=== PATIENT | male | born 1985 | race Caucasian/White ===

== ENCOUNTER 2019-01-20 10:53 | Emergency (ER) | payer SELFPAY ==
[2019-01-20] MEDS ORDERED: ONDANSETRON HCL INJ/PF 4 MG/2 ML SDV IV ONE (11:35)
--- NOTE | 2019-01-20 11:35 | ER Document Report ---
ED Medical Screen (RME) - General Chief Complaint: Passed Out Prior to Arrival Stated Complaint: FEVER/CHILLS Time Seen by Provider: 01/20/19 11:28 Mode of Arrival: Ambulatory Information source: Patient, [facility] Records Notes: 33-year-old male with hypertension presents with complaint of nausea, vomiting, headache, chills, sweats and diarrhea. Patient reports that 3 weeks prior to arrival he underwent an operation at [facility] for an abscess that was in his inguinal area. He states he was admitted for approximately 5 days. I have greeted and performed a rapid initial assessment of this patient. A comprehensive ED assessment and evaluation of the patient, analysis of test results and completion of medical decision making process we will be contacted by additional ED providers. PHYSICAL EXAMINATION: Vital signs reviewed GENERAL: Appears to be uncomfortable LUNGS: No respiratory distress Musculoskeletal: Normal range of motion NEUROLOGICAL: Normal speech, normal gait. PSYCH: Normal mood, normal affect. TRAVEL OUTSIDE OF THE U.S. IN LAST 30 DAYS: No - HPI Onset: Other Onset/Duration: Persistent Quality of pain: Achy Severity: Moderate Associated Symptoms: Chills, Fever, Nausea, Sweating, Vomiting Exacerbated by: Denies Relieved by: Denies Similar symptoms previously: No Recently seen / treated by doctor: Yes - Related Data Smoking: Cigarettes Frequency of alcohol use: Occasional Drug Abuse: Marijuana Allergies/Adverse Reactions: No Known Allergies Allergy (Unverified 01/20/19 10:54) Physical Exam - Vital signs Vitals: Temp Pulse Resp BP Pulse Ox 98.5 F 84 16 164/117 H 100 01/20/19 10:59 01/20/19 10:59 01/20/19 10:59 01/20/19 10:59 01/20/19 10:59 Course - Vital Signs Vital signs: Temp Pulse Resp BP Pulse Ox 98.5 F 84 16 164/117 H 100 01/20/19 10:59 01/20/19 10:59 01/20/19 10:59 01/20/19 10:59 01/20/19 10:59
[2019-01-20 12:29] LABS: ABSOLUTE EOSINOPHILS # (AUTO) 0.1 10^3/uL (0.0-0.6); ABSOLUTE LYMPHOCYTES (AUTO) 1.7 10^3/uL (0.5-4.7); ABSOLUTE MONOCYTES (AUTO) 0.8 10^3/uL (0.1-1.4); ABSOLUTE NEUT (AUTO) 6.4 10^3/uL (1.7-8.2); BASOPHILS % (AUTO) 0.5 % (0-2); EOSINOPHILS % (AUTO) 1.6 % (0-6); HEMATOCRIT 46.1 % (37.9-51.0); HEMOGLOBIN 15.3 g/dL (13.5-17.0); LYMPHOCYTES % (AUTO) 18.6 % (13-45); MEAN CORPUSCULAR HGB CONC 33.2 g/dL (32.0-36.0); MEAN CORPUSCULAR VOLUME 81 fl (80-97); PLATELET COUNT 251 10^3/uL (150-450); RED BLOOD COUNT 5.69 10^6/uL (4.35-5.55); RED CELL DISTRIBUTION WIDTH 16.7 % (11.5-14.0); SEGMENTED NEUTROPHILS % (AUTO) 70.3 % (42-78); TOTAL CELLS COUNTED % (AUTO) 100 %; WHITE BLOOD COUNT 9.1 10^3/uL (4.0-10.5)
[2019-01-20 12:54] LABS: ALANINE AMINOTRANSFERASE 44 U/L (21-72); ALKALINE PHOSPHATASE 97 U/L (38-126); ANION GAP 12 (5-19); ASPARTATE AMINO TRANSFERASE 23 U/L (17-59); BILIRUBIN,DIRECT 0.3 mg/dL (0.0-0.4); BILIRUBIN,TOTAL 0.3 mg/dL (0.2-1.3); BLOOD UREA NITROGEN 19 mg/dL (7-20); CALCIUM 9.8 mg/dL (8.4-10.2); CARBON DIOXIDE 25 mmol/L (22-30); CHLORIDE 103 mmol/L (98-107); GLUCOSE 122 mg/dL (75-110); LIPASE 68.3 U/L (23-300); POTASSIUM 3.6 mmol/L (3.6-5.0); SODIUM 139.5 mmol/L (137-145)
[2019-01-20 14:25] VITALS: BP 178/122
[2019-01-20] MEDS ORDERED: NYSTATIN 500000 UNIT/5 ML UDCUP PO ONE (14:35)
[2019-01-20] MEDS ORDERED: DIPHENHYDRAMINE HCL 25 MG/10 ML UDC PO ONE (14:37)
[2019-01-20] MEDS ORDERED: LIDOCAINE 2% VISCOUS SOLN 20 ML UDCUP PO ONE (14:37)
--- NOTE | 2019-01-20 14:39 | ER Document Report ---
ED General - General Chief Complaint: Passed Out Prior to Arrival Stated Complaint: FEVER/CHILLS Time Seen by Provider: 01/20/19 11:28 Mode of Arrival: Ambulatory Notes: 33-year-old male to the emergency department chief complaint of syncopal episode. Patient states he was recently hospitalized within the last month at [facility] for scrotal abscess. Had surgery to open up the abscess. Had a drain in. Was on multiple antibiotics including IV antibiotics followed by oral antibiotics followed by another dose of IV antibiotics. States that ever since he has finished all the antibiotics he started having pain in the throat and mouth. States that it hurts to swallow. Has some vomiting as well. The pain was so bad he passed out today. Did not hit his head. Denies any pain other than the mouth and throat. TRAVEL OUTSIDE OF THE U.S. IN LAST 30 DAYS: No - HPI Onset/Duration: Gradual Quality of pain: Burning, Sharp Severity: Moderate Pain Level: 3 Associated symptoms: Vomiting, Sore throat - Related Data Allergies/Adverse Reactions: No Known Allergies Allergy (Unverified 01/20/19 10:54) Past Medical History - General Information source: Patient, [facility] Records - Social History Smoking Status: Current Every Day Smoker Frequency of alcohol use: Occasional Drug Abuse: Marijuana Lives with: Family Family History: Reviewed & Not Pertinent Patient has suicidal ideation: No Patient has homicidal ideation: No Renal/ Medical History: Denies: Hx Peritoneal Dialysis Review of Systems - Review of Systems Notes: Constitutional: denies: Chills, Diaphoresis, Fever, Malaise, Weakness EENT: denies: Eye discharge, Blurred vision, Tearing, Double vision, Nose congestion, Nose discharge, complaining of mouth pain and throat pain with pain with swallowing. Cardiovascular: denies: Palpitations, Heart racing, Orthopnea, Dyspnea, Chest pain. + Syncope Respiratory: denies: Cough, Hurts to breathe, Wheezing, Shortness of breath Gastrointestinal: denies: Abdominal pain, Diarrhea,. Complaining of nausea and vomiting Genitourinary: denies: Burning, Dysuria, Discharge, Frequency, Flank pain, Hematuria Musculoskeletal: denies: Joint pain, Joint swelling, Muscle pain, Muscle stiffness, back pain Hematologic/Lymphatic: denies: Anemia, Easy bleeding, Easy bruising, Blood clots Neurological/Psychological: denies: Confusion, Dementia, Depression, Loss of consciousness Skin: No lesions, no masses, no skin breakdown, no abscesses Physical Exam - Vital signs Vitals: Temp Pulse Resp BP Pulse Ox 98.5 F 84 16 164/117 H 100 01/20/19 10:59 01/20/19 10:59 01/20/19 10:59 01/20/19 10:59 01/20/19 10:59 Interpretation: Hypertensive - General General appearance: Appears well, Alert - HEENT Head: Normocephalic, Atraumatic Eyes: Normal Pupils: PERRL Notes: Patient has some aphthous-looking ulcers to the bilateral lateral tongue, white tongue lesions consistent with yeast/fungal overgrowth. - Respiratory Respiratory status: No respiratory distress Chest status: Nontender Breath sounds: Normal Chest palpation: Normal - Cardiovascular Rhythm: Regular Heart sounds: Normal auscultation Murmur: No - Abdominal Inspection: Normal Distension: No distension Bowel sounds: Normal Tenderness: Nontender Organomegaly: No organomegaly - Back Back: Normal, Nontender - Extremities General upper extremity: Normal inspection, Nontender, Normal color, Normal ROM, Normal temperature General lower extremity: Normal inspection, Nontender, Normal color, Normal ROM, Normal temperature, Normal weight bearing. No: Reuben's sign - Neurological Neuro grossly intact: Yes Cognition: Normal Orientation: AAOx4 Desirae Coma Scale Eye Opening: Spontaneous Desirae Coma Scale Verbal: Oriented Hibbs Coma Scale Motor: Obeys Commands Hibbs Coma Scale Total: 15 Speech: Normal Motor strength normal: LUE, RUE, LLE, RLE Sensory: Normal - Psychological Associated symptoms: Normal affect, Normal mood - Skin Skin Temperature: Warm Skin Moisture: Dry Skin Color: Normal Course - Re-evaluation Re-evalutation: 01/20/19 15:08 Patient is EKG shows LVH but no signs of acute pathology. Labs look fairly unremarkable. More likely patient has fungal overgrowth after all of these antibiotics. His scrotum does not appear overly infected and has some clear drainage but does not appear to be pustular. Patient has a history of hidradenitis suppurativa so he has been on multiple antibiotics leading to his susceptibility to some fungal overgrowth in the mouth. I think at this time he would benefit from some nystatin troches. Remained stable at this time. Also, patient's blood pressure is too high and he admits that he was supposed to be on blood pressure medication but has not been taking care of himself. Will start him on some losartan as well. 01/20/19 15:29 Laboratory 01/20/19 01/20/19 11:53 11:53 WBC 9.1 RBC 5.69 H Hgb 15.3 Hct 46.1 MCV 81 MCH 27.0 MCHC 33.2 RDW 16.7 H Plt Count 251 Seg Neutrophils % 70.3 Lymphocytes % 18.6 Monocytes % 9.0 Eosinophils % 1.6 Basophils % 0.5 Absolute Neutrophils 6.4 Absolute Lymphocytes 1.7 Absolute Monocytes 0.8 Absolute Eosinophils 0.1 Absolute Basophils 0.0 Sodium 139.5 Potassium 3.6 Chloride 103 Carbon Dioxide 25 Anion Gap 12 BUN 19 Creatinine 1.19 Est GFR ( Amer) > 60 Est GFR (Non-Af Amer) > 60 Glucose 122 H Calcium 9.8 Total Bilirubin 0.3 Direct Bilirubin 0.3 Neonat Total Bilirubin Not Reportable Neonat Direct Bilirubin Not Reportable Neonat Indirect Bili Not Reportable AST 23 ALT 44 Alkaline Phosphatase 97 Total Protein 7.0 Albumin 4.0 Lipase 68.3 01/20/19 15:56 At discharge patient states that he told the nurse earlier on in the visit that he was suicidal and he was going to kill himself. At no time during my visit did the patient ever bring up this information. Patient was asked by the nurse at discharge if he was still suicidal and he says yes. Will place a hold on the discharge at this time and have mental health see him. 01/20/19 16:59 Mental health provider has seen the patient. Patient refusing to talk to our mental health provider and was apparently uncooperative. Once again patient has never stated to me any suicidal ideation. Patient was asked directly and he denied anything to me. We will proceed with discharge at this time based on the recommendations of mental health. 01/20/19 20:28 Mental health went in to see the patient and patient became belligerent with the mental health provider insulting her and not answering any questions. We provided patient an opportunity to talk about this alleged suicidal ideation however patient would not provide any information or talk to the mental health provider. We are willing to help but we cannot work with an individual who is belligerent and not willing to help discuss his condition. Apparently the patient began calling 911 from his cell phone within the emergency department. Uncertain what this manipulative behavior is all about. Police had to be called as patient began trying to smoke his vapor cigarette while in the emergency department. Patient was subdued by the security guards and then police arrived. They placed patient in their custody and patient was discharged to the police in their custody. - Vital Signs Vital signs: Temp Pulse Resp BP Pulse Ox 99.5 F 75 16 178/122 H 100 01/20/19 14:24 01/20/19 14:24 01/20/19 10:59 01/20/19 14:24 01/20/19 14:24 - Laboratory Result Diagrams: 01/20/19 11:53 01/20/19 11:53 Laboratory results interpreted by me: 01/20/19 01/20/19 01/20/19 11:53 11:53 11:53 RBC 5.69 H RDW 16.7 H Glucose 122 H Salicylates < 1.0 L Acetaminophen < 10 L Discharge - Discharge Clinical Impression: Candidosis of esophagus, Aphthous ulcer of mouth, Vaso vagal episode Condition: Good Disposition: HOME, SELF-CARE Instructions: Mouth Sores ([facility]), Vasovagal Symptoms ([facility]) Additional Instructions: Take the oral antifungal medication as instructed. Hopefully this will begin to clear up very quickly. In the event that symptoms are getting worse please r eturn. Your blood pressure is too high. You need to be on blood pressure medications. Blood pressure medications have been prescribed for you. Prescriptions: Losartan Potassium [Cozaar 25 mg Tablet] 25 mg PO DAILY 30 Days #30 tablet Nystatin [Mycostatin 303041 Unit/1 ml Susp 60 ml Btl] 5 ml PO QID 10 Days #200 ml
[2019-01-20] MEDS ORDERED: LOSARTAN POTASSIUM 25 MG TABLET PO ONE (15:04)
[2019-01-20] MEDS ORDERED: OXYCODONE-ACETAMINOPHEN 5-325 MG TABLET PO ONE (15:04)
[2019-01-20 16:20] LABS: ACETAMINOPHEN < 10 ug/mL (10-30); ALCOHOL < 10 mg/dL (NONE DETECTED); SALICYLATE < 1.0 mg/dL (2.0-20.0)
--- NOTE | 2019-01-20 22:14 | EKG REPORT ---
SEVERITY:- ABNORMAL ECG - SINUS RHYTHM PROMINENT P WAVES, NONDIAGNOSTIC LEFT AXIS DEVIATION PROBABLE LEFT VENTRICULAR HYPERTROPHY : Confirmed by: Gabriella Lynn MD 20-Jan-2019 22:13:49
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
== END 2019-01-20 17:29 | disposition home or self-care (01) ==
LOC: ER 10:53
DX: B37.81 Candidal esophagitis (principal); K12.0 Recurrent oral aphthae; R55 Syncope and collapse; R11.10 Vomiting, unspecified; I11.9 Hypertensive heart disease without heart failure; T50.906A Underdosing of unspecified drugs, medicaments and biological substances, initial encounter; Z91.128 Patient's intentional underdosing of medication regimen for other reason; Z91.14 Patient's other noncompliance with medication regimen; F17.290 Nicotine dependence, other tobacco product, uncomplicated; F12.10 Cannabis abuse, uncomplicated; Z98.890 Other specified postprocedural states; Z56.0 Unemployment, unspecified
CPT/HCPCS: 93005; 99285; 96374; 36415; 87040; 80307 ×3; 83690; 85025; 80053; 83036; 93010; J3490 ×2; J2405

== ENCOUNTER 2019-01-25 11:48 | Observation (INO) | payer SELFPAY ==
[2019-01-25] MEDS ORDERED: SUCCINYLCHOLINE CHLORIDE INJ 200 MG/10 ML VIAL ONE (12:13)
[2019-01-25] MEDS ORDERED: MORPHINE SULFATE 10 MG/ML INJ IV ONE ×2 (13:00→17:32)
[2019-01-25] MEDS ORDERED: ONDANSETRON HCL INJ/PF 4 MG/2 ML SDV IV ONE (13:00)
[2019-01-25] MEDS ORDERED: NORMAL SALINE 1000 ML 1,000 ML IV ONE (13:00)
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
[2019-01-25 13:24] LABS: HEMATOCRIT 41.1 % (37.9-51.0); HEMOGLOBIN 13.6 g/dL (13.5-17.0); MEAN CORPUSCULAR HEMOGLOBIN 26.8 pg (27.0-33.4); MEAN CORPUSCULAR HGB CONC 33.2 g/dL (32.0-36.0); MEAN CORPUSCULAR VOLUME 81 fl (80-97); PLATELET COUNT 330 10^3/uL (150-450); RED BLOOD COUNT 5.08 10^6/uL (4.35-5.55); RED CELL DISTRIBUTION WIDTH 16.7 % (11.5-14.0); WHITE BLOOD COUNT 24.1 10^3/uL (4.0-10.5)
[2019-01-25 13:25] LABS: INTERNATIONAL RATION (INR) 0.96; PARTIAL THROMBOPLASTIN TIME 28.2 SEC (23.5-35.8); PROTHROMBIN TIME 13.3 SEC (11.4-15.4)
[2019-01-25 13:41] LABS: ALANINE AMINOTRANSFERASE 21 U/L (21-72); ALBUMIN 3.9 g/dL (3.5-5.0); ALKALINE PHOSPHATASE 105 U/L (38-126); ANION GAP 13 (5-19); ASPARTATE AMINO TRANSFERASE 16 U/L (17-59); BILIRUBIN,DIRECT 0.3 mg/dL (0.0-0.4); BILIRUBIN,TOTAL 0.5 mg/dL (0.2-1.3); BLOOD UREA NITROGEN 17 mg/dL (7-20); CALCIUM 9.8 mg/dL (8.4-10.2); CARBON DIOXIDE 23 mmol/L (22-30); CHLORIDE 105 mmol/L (98-107); GLUCOSE 94 mg/dL (75-110); POTASSIUM 3.5 mmol/L (3.6-5.0); SODIUM 141.1 mmol/L (137-145)
[2019-01-25 13:58] LABS: ABSOLUTE LYMPHOCYTES# (MANUAL) 2.2 10^3/uL (0.5-4.7); ABSOLUTE MONOCYTES # (MANUAL) 2.2 10^3/uL (0.1-1.4); ABSOLUTE NEUTROPHILS# (MANUAL) 19.8 10^3/uL (1.7-8.2); BASOPHILS % (MANUAL) 0 % (0-2); EOSINOPHILS % (MANUAL) 0 % (0-6); LYMPHOCYTES % (MANUAL) 9 % (13-45); MONOCYTES % (MANUAL) 9 % (3-13); SEGMENTED NEUTROPHILS % (MAN) 82 % (42-78); TOTAL CELLS COUNTED 100
[2019-01-25 13:59] LABS: ANISOCYTOSIS SLIGHT; PLATELET COMMENT ADEQUATE; POIKILOCYTOSIS SLIGHT
--- NOTE | 2019-01-25 15:00 | RADIOLOGY REPORT (SQ) ---
EXAM DESCRIPTION: CT PELVIS WITH COMPLETED DATE/TIME: 01/25/2019 2:37 pm REASON FOR STUDY: Pilonital abscess COMPARISON: None. TECHNIQUE: CT scan of the pelvis performed without intravenous or oral contrast. Images reviewed wi th soft tissue and bone windows. Reconstructed coronal and sagittal MPR images reviewed. All images stored on PACS. All CT scanners at this facility use dose modulation, iterative reconstruction, and/or weight based d osing when appropriate to reduce radiation dose to as low as reasonably achievable (ALARA). [facility]: Dose Right [facility]: CareDose [facility]: Dose Right [facility]: Teradose 4D [facility]: Smart ODEC RADIATION DOSE: CT Rad equipment meets quality standard of care and radiation dose reduction techniq ues were employed. CTDIvol: 7.2 - 10.2 mGy. DLP: 587 mGy-cm. mGy. LIMITATIONS: None. FINDINGS: PELVIC BONES: No acute fracture. No worrisome bone lesions. VISUALIZED SPINE: No acute findings. HIP(S): No acute fracture or dislocation. No worrisome bone lesions. PELVIC SOFT TISSUES: No significant findings. EXTRAPELVIC SOFT TISSUES: Large irregular fluid collection involving the soft tissue superior to the cleft of the buttocks at the site of tenderness. Most likely represents an abscess when correlated w ith clinical information. Measures approximately 7.4 x 3.7 x 3.3 cm. Surrounding soft tissue strand ing related to the inflammation. OTHER: No other significant finding. IMPRESSION: Pilonidal abscess. See above discussion. TECHNICAL DOCUMENTATION: JOB ID: [id number] Quality ID # [id number]: Final reports with documentation of one or more dose reduction techniques (e.g., Au tomated exposure control, adjustment of the mA and/or kV according to patient size, use of iterative reconstruction technique) 2010 [employer]- All Rights Reserved Reading location - IP/workstation name: [email or web address]
[2019-01-25] MEDS ORDERED: CLINDAMYCIN 600 MG/D5W RTU 600 MG/50 ML RTUPB IV ONE (15:08)
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
[2019-01-25] MEDS ORDERED: LIDOCAINE 1%/EPINEPHRINE INJ 20 ML VIAL ONE (19:22)
[2019-01-25] MEDS ORDERED: PROPOFOL INJ 200 MG/20 ML VIAL IV ONE (19:38)
[2019-01-25] MEDS ORDERED: ACETAMINOPHEN 0 MG/0 ML RTUPB IV ONE (19:38)
[2019-01-25] MEDS ORDERED: FENTANYL CITRATE INJ/PF 100 MCG/2 ML AMPUL ONE (19:38)
[2019-01-25] MEDS ORDERED: MIDAZOLAM 2 MG/2 ML INJ ONE (19:38)
[2019-01-25] MEDS ORDERED: EPHEDRINE SULFATE INJ 50 MG/1 ML AMPULE ONE (19:39)
[2019-01-25] MEDS ORDERED: MEPERIDINE HCL/PF INJ 25 MG/1 ML DISP.SYRIN IV PRN (20:23)
[2019-01-25] MEDS ORDERED: PROMETHAZINE HCL INJ 25 MG/1 ML VIAL IV PRN (20:23)
[2019-01-25] MEDS ORDERED: DIPHENHYDRAMINE HCL 50 MG/ML VIAL IV PRN (20:23)
[2019-01-25] MEDS ORDERED: FENTANYL CITRATE INJ/PF 100 MCG/2 ML AMPUL IV PRN ×3 (20:23)
--- NOTE | 2019-01-25 20:38 | Operative Report ---
Operative Report DATE OF SURGERY: 01/25/19 PREOPERATIVE DIAGNOSIS: Large pilonidal abscess POSTOPERATIVE DIAGNOSIS: Same OPERATION: 1. Midline excisional debridement of skin, subcutaneous tissue and lining of large pilonidal abscess. 2. Counterincision right upper buttock and placement of loop drain SURGEON: CHARLOTTE HINKLE ANESTHESIA: GA TISSUE REMOVED OR ALTERED: Plus, skin, rind COMPLICATIONS: none ESTIMATED BLOOD LOSS: 40 cc INTRAOPERATIVE FINDINGS: see below PROCEDURE: Patient was taken to the main operating room and general anesthesia was induced. He was placed in the prone position, buttocks spread and then the buttock as well as the sacrococcygeal area prepped draped sterile fashion Surgical plan surgical timeout were conducted. The findings are significant for a large subcutaneous swelling over the sacrococcygeal area. The point of maximum distention was approximately centimeters cephalad to the superior buttock crease. The skin was anesthetized with quarter percent Marcaine, and a 2 cm incision was made and into the subcutaneous tissue a massive amount of pus was evacuated. The pocket was very large and extended cephalad 5 cm laterally on each side 6 cm and then approximately 10 cm down to the francisco cleft. There was a pustule above the right buttock parallel in line to the initial incision. This pustule was excised in its entirety with #10 blade. The pus pocket communicated with the larger pus pocket. A small [place] drain was looped between these 2 incisions and tied in a knot. The patient's right buttock cheek several centimeters from the anal verge approximately right 3 o'clock position the skin was very indurated and thickened, so I anesthetized this area and made a small 11 blade puncture wound into the tissue. No pus was expressed. We now spent approximately 15 minutes excavating the rind of the large chronic pilonidal abscess cavity with a series of curettes. A vigorous debriding it took place with the evacuation of chronic inflammatory rind. The pits in the cleft were not open and were not full of hair so they were not excisionally debrided; however our curettes could reach this area through the large subcutaneous tunnel and the subcutaneous tissue underlying the pits was vigorously debrided. Wound was irrigated vigorously with saline several times. Wound culture of pus sent upon initial exploration. Iodoform packing 1 bottle was placed in the large abscess cavity 4 x 4 was applied. Patient tolerated procedure well, extubated, taken recovery in stable condition.
[2019-01-25] MEDS ORDERED: HYDROMORPHONE HCL INJ/PF 2 MG/ML AMPULE ONE (21:02)
[2019-01-25] MEDS ORDERED: DIPHENHYDRAMINE HCL 50 MG/ML VIAL IV ONE (22:45)
[2019-01-25] MEDS: METRONIDAZOLE 500 MG/NS RTU 500 MG/100 ML RTUPB IV SCH (23:10)
[2019-01-26] MEDS ORDERED: NICOTINE 21 MG/24 HR PATCH.TD24 TD ONE (00:15)
[2019-01-26] MEDS: ACETAMINOPHEN INJ/PF 1000 MG/100 ML SDV IV SCH ×3 (00:17→11:13)
[2019-01-26] MEDS: KETOROLAC TROMETHAMINE 10 MG TABLET PO PRN ×3 (00:26→15:48)
[2019-01-26] MEDS: METRONIDAZOLE 500 MG/NS RTU 500 MG/100 ML RTUPB IV SCH ×3 (04:55→22:15)
[2019-01-26] MEDS: NICOTINE 14 MG/24 HR PATCH.TD24 TD SCH (09:56)
[2019-01-26] MEDS: DOCUSATE SODIUM 100 MG CAPSULE PO SCH ×2 (09:56→18:31)
[2019-01-26] MEDS: ACETAMINOPHEN 1,000 MG/100 ML RTUPB IV SCH ×2 (15:48→21:10)
[2019-01-26] MEDS ORDERED: HYDROMORPHONE HCL INJ/PF 2 MG/ML AMPULE ONE (19:20)
[2019-01-26] MEDS ORDERED: HYDROMORPHONE HCL INJ/PF 2 MG/ML AMPULE IV ONE (20:00)
--- NOTE | 2019-01-26 20:13 | PDOC PROGRESS REPORT ---
Subjective Progress Note for:: 01/26/19 Subjective:: pains at pilonidal operative site Reason For Visit: PILONIDAL ABSCESS Physical Exam Vital Signs: Temp Pulse Resp BP Pulse Ox 99.0 F 67 16 154/85 H 100 01/26/19 15:19 01/26/19 15:19 01/26/19 15:19 01/26/19 15:19 01/26/19 15:19 Intake & Output 01/25/19 01/26/19 01/27/19 06:59 06:59 06:59 Intake Total 3418 440 Output Total 2 Balance 3416 440 Weight 75.1 kg 75.1 kg Exam: Packing removed after giving IV Dilaudid. Initially tried removing packing but patient unable to tolerate. Appears dry after removal of iodoform packing. [place] drain left in place to be remove in the surgical office in one week. Results Laboratory Results: 01/25/19 13:10 01/25/19 13:10 Impressions: Pelvis CT 01/25/19 12:51 IMPRESSION: Pilonidal abscess. See above discussion. Assessment & Plan - Time Time Spent with patient: 15-24 minutes - Inpatient Certification Medical Necessity: Need for IV Antibiotics - Plan Summary Plan Summary: Check WBC in am prior to discharge Continue IV antibiotics
[2019-01-27] MEDS: ACETAMINOPHEN 1,000 MG/100 ML RTUPB IV SCH ×2 (02:49→11:13)
[2019-01-27] MEDS: METRONIDAZOLE 500 MG/NS RTU 500 MG/100 ML RTUPB IV SCH ×2 (04:47→12:25)
[2019-01-27 07:40] LABS: ABSOLUTE BASOPHILS # (AUTO) 0.1 10^3/uL (0.0-0.2); ABSOLUTE EOSINOPHILS # (AUTO) 0.2 10^3/uL (0.0-0.6); ABSOLUTE LYMPHOCYTES (AUTO) 1.2 10^3/uL (0.5-4.7); ABSOLUTE MONOCYTES (AUTO) 0.8 10^3/uL (0.1-1.4); BASOPHILS % (AUTO) 0.8 % (0-2); EOSINOPHILS % (AUTO) 2.4 % (0-6); HEMATOCRIT 37.4 % (37.9-51.0); HEMOGLOBIN 12.5 g/dL (13.5-17.0); LYMPHOCYTES % (AUTO) 14.9 % (13-45); MEAN CORPUSCULAR HEMOGLOBIN 26.6 pg (27.0-33.4); MEAN CORPUSCULAR HGB CONC 33.5 g/dL (32.0-36.0); MEAN CORPUSCULAR VOLUME 80 fl (80-97); MONOCYTES % (AUTO) 9.4 % (3-13); PLATELET COUNT 321 10^3/uL (150-450); RED BLOOD COUNT 4.71 10^6/uL (4.35-5.55); RED CELL DISTRIBUTION WIDTH 16.9 % (11.5-14.0); SEGMENTED NEUTROPHILS % (AUTO) 72.5 % (42-78); TOTAL CELLS COUNTED % (AUTO) 100 %; WHITE BLOOD COUNT 8.2 10^3/uL (4.0-10.5)
[2019-01-27] MEDS: NICOTINE 14 MG/24 HR PATCH.TD24 TD SCH (11:13)
[2019-01-27] MEDS: KETOROLAC TROMETHAMINE 10 MG TABLET PO PRN (11:13)
[2019-01-27] MEDS: DOCUSATE SODIUM 100 MG CAPSULE PO SCH (11:19)
[2019-01-27 12:25] VITALS: BP 150/98
--- NOTE | 2019-01-29 12:13 | DISCHARGE SUMMARY E ---
Discharge Summary NAME: JF LAN : 1985 AGE: 33Y ADMITTED: 01/25/2019 DISCHARGED: 01/27/2019 FINAL DIAGNOSIS: Pilonidal abscess. PROCEDURE DONE: On 01/25/2019, incision and drainage of pilonidal abscess; surgeon Dr. Hudson. HOSPITAL COURSE: This is a 33-year-old male who had been complaining of pains in the sacral area for the past several days. He was then admitted through the emergency room and noted to have a large pilonidal abscess on 01/25/2019. The patient was immediately taken to the OR for incision and drainage by Dr. Hudson. It was drained and packing and a Loop drain placed. On 01/25/2019 the packing was removed but the Loop drain was left in place; this was a [place] drain. His initial white count was elevated, but on the day of discharge, on 01/27/2019, his white count came back to normal. He was given a prescription for doxycycline 100 mg p.o. twice a day for about 7 days as well as Percocet 5 mg/325 mg x10 to take 1 every 6 hours p.r.n. for pain. He was also given a prescription for Toradol for less severe pains. The patient is to be followed up in the Surgical [facility] by Dr. Hudson in about a week. DICTATING PHYSICIAN: JAMAL CROWE M.D. [id number] PHY#: [id number] ID: [id number] JOB#: [id number] ACCT: [id number] cc:Familia PEREZ M.D. >
== END 2019-01-27 15:46 | disposition home or self-care (01) ==
LOC: OROUT 11:48 → EH 17:15 → INTOOBSV 17:15 → 4S 21:56
PROVIDERS: ADMIT Internal Medicine; ATTEND Internal Medicine
PROC: HZ31ZZZ Individual Counseling for Substance Abuse Treatment, Behavioral (ICD-10-PCS; 2019-01-25)
PROC: 0JB70ZZ Excision of Back Subcutaneous Tissue and Fascia, Open Approach (ICD-10-PCS; principal; 2019-01-25 19:15)
DX: L05.01 Pilonidal cyst with abscess (principal); F17.200 Nicotine dependence, unspecified, uncomplicated; Z98.890 Other specified postprocedural states; Z87.828 Personal history of other (healed) physical injury and trauma; Z79.899 Other long term (current) drug therapy
CPT/HCPCS: 99285; 96361; 96375; 96365; 36415 ×2; 87040; 87070; 87205; 85025 ×2; 85610; 85730; 87075; 87077; 80053; 87186; 72193; 99406; 11042; G0378 ×4; A6266; J2250; J1200; J3010; J3490 ×3; J2270; J1170 ×2; J0330; J2405; J7030; J2704; J0131 ×2; 300

== ENCOUNTER 2019-02-14 20:06 | Emergency (ER) | payer SELFPAY ==
[2019-02-14 20:29] VITALS: BP 189/115
[2019-02-14] MEDS ORDERED: ACETAMINOPHEN 325 MG TABLET PO ONE (21:27)
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
== END 2019-02-14 21:51 | disposition left against medical advice (07) ==
LOC: ER 20:06
DX: I10 Essential (primary) hypertension (principal); H53.8 Other visual disturbances; R51 Headache; Z98.890 Other specified postprocedural states; Z53.20 Procedure and treatment not carried out because of patient's decision for unspecified reasons
CPT/HCPCS: 99281

== ENCOUNTER 2019-02-17 08:22 | Emergency (ER) | payer SELFPAY ==
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
[2019-02-17 08:53] VITALS: BP 125/72
== END 2019-02-17 08:56 | disposition home or self-care (01) ==
LOC: ER 08:22
DX: L27.1 Localized skin eruption due to drugs and medicaments taken internally (principal); S00.522A Blister (nonthermal) of oral cavity, initial encounter; T46.4X5A Adverse effect of angiotensin-converting-enzyme inhibitors, initial encounter; X58.XXXA Exposure to other specified factors, initial encounter; I10 Essential (primary) hypertension
CPT/HCPCS: 99283

== ENCOUNTER 2019-02-24 01:13 | Emergency (ER) | payer SELFPAY ==
[2019-02-24 03:35] VITALS: BP 149/89
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
== END 2019-02-24 04:11 | disposition home or self-care (01) ==
LOC: ER 01:13
DX: L05.01 Pilonidal cyst with abscess (principal); I10 Essential (primary) hypertension; Z79.899 Other long term (current) drug therapy; F17.210 Nicotine dependence, cigarettes, uncomplicated
CPT/HCPCS: 99283

== ENCOUNTER 2019-02-24 23:57 | Emergency (ER) | payer SELFPAY ==
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
[2019-02-25] MEDS ORDERED: HYDROCODONE/ACETAMINOPHEN 5-325 MG (6 TAB/ER DISP) PO PRN (01:31)
[2019-02-25 01:51] VITALS: BP 147/97
== END 2019-02-25 01:57 | disposition home or self-care (01) ==
LOC: ER 23:57
DX: Z48.01 Encounter for change or removal of surgical wound dressing (principal); L73.2 Hidradenitis suppurativa; I10 Essential (primary) hypertension; Z72.820 Sleep deprivation
CPT/HCPCS: 99282

== ENCOUNTER 2019-02-27 12:54 | Emergency (ER) | payer SELFPAY ==
[2019-02-27 13:38] VITALS: BP 155/102
== END 2019-02-27 14:17 | disposition left against medical advice (07) ==
LOC: ER 12:54
DX: Z53.21 Procedure and treatment not carried out due to patient leaving prior to being seen by health care provider (principal)

== ENCOUNTER 2019-02-27 20:22 | Emergency (ER) | payer SELFPAY ==
[2019-02-27] MEDS ORDERED: LIDOCAINE 2% VISCOUS SOLN 20 ML UDCUP PO ONE (23:36)
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
[2019-02-28 00:05] VITALS: BP 159/104
[2019-02-28] MEDS ORDERED: ONDANSETRON ODT 4 MG TAB (6 TAB/ER DISP) PO PRN (00:22)
== END 2019-02-28 00:32 | disposition home or self-care (01) ==
LOC: ER 20:22
DX: L73.2 Hidradenitis suppurativa (principal); Z98.890 Other specified postprocedural states; K14.6 Glossodynia; I10 Essential (primary) hypertension; Z88.8 Allergy status to other drugs, medicaments and biological substances
CPT/HCPCS: 99281; J3490

== ENCOUNTER 2019-03-01 17:48 | Emergency (ER) | payer SELFPAY | END 2019-03-01 18:09 | disposition left against medical advice (07) | LOC: ER 17:48 | DX: Z53.21 Procedure and treatment not carried out due to patient leaving prior to being seen by health care provider (principal); L02.91 Cutaneous abscess, unspecified ==

== ENCOUNTER 2019-03-07 21:19 | Emergency (ER) | payer SELFPAY ==
[2019-03-08] MEDS ORDERED: PREDNISONE 20 MG TABLET PO ONE (03:34)
[2019-03-08] MEDS ORDERED: CEPHALEXIN 500 MG CAPSULE PO ONE (03:34)
[2019-03-08] MEDS ORDERED: SULFAMETHOXAZOLE/TRIMETHOPRIM 800-160 MG TABLET PO ONE (03:34)
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
[2019-03-08] MEDS ORDERED: HYDROCODONE/ACETAMINOPHEN 5-325 MG (6 TAB/ER DISP) PO PRN (03:43)
[2019-03-08 03:56] VITALS: BP 165/129
== END 2019-03-08 04:03 | disposition home or self-care (01) ==
LOC: ER 21:19
DX: L73.2 Hidradenitis suppurativa (principal); I10 Essential (primary) hypertension; Z88.6 Allergy status to analgesic agent
CPT/HCPCS: 99282; J7512

== ENCOUNTER 2019-05-29 19:50 | Emergency (ER) | payer SELFPAY ==
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
[2019-05-29 21:04] LABS: ABSOLUTE LYMPHOCYTES (AUTO) 0.5 10^3/uL (0.5-4.7); ABSOLUTE MONOCYTES (AUTO) 0.3 10^3/uL (0.1-1.4); ABSOLUTE NEUT (AUTO) 7.5 10^3/uL (1.7-8.2); BASOPHILS % (AUTO) 0.1 % (0-2); EOSINOPHILS % (AUTO) 0.1 % (0-6); HEMATOCRIT 45.8 % (37.9-51.0); HEMOGLOBIN 15.2 g/dL (13.5-17.0); LYMPHOCYTES % (AUTO) 5.9 % (13-45); MEAN CORPUSCULAR HEMOGLOBIN 28.6 pg (27.0-33.4); MEAN CORPUSCULAR HGB CONC 33.3 g/dL (32.0-36.0); MEAN CORPUSCULAR VOLUME 86 fl (80-97); PLATELET COUNT 243 10^3/uL (150-450); RED BLOOD COUNT 5.32 10^6/uL (4.35-5.55); RED CELL DISTRIBUTION WIDTH 14.6 % (11.5-14.0); SEGMENTED NEUTROPHILS % (AUTO) 89.9 % (42-78); TOTAL CELLS COUNTED % (AUTO) 100 %; WHITE BLOOD COUNT 8.4 10^3/uL (4.0-10.5)
[2019-05-29 21:07] LABS: AMORPHOUS SEDIMENT,URINE TRACE /HPF; APPEARANCE,URINE CLOUDY; BILIRUBIN,URINE NEGATIVE (NEGATIVE); COLOR,URINE YELLOW; GLUCOSE, URINE NEGATIVE (NEGATIVE); KETONES,URINE NEGATIVE (NEGATIVE); LEUKOCYTE ESTERASE,URINE SMALL (NEGATIVE); NITRITE,URINE NEGATIVE (NEGATIVE); PROTEIN,URINE NEGATIVE (NEGATIVE); URINE SPECIFIC GRAVITY 1.018; UROBILINOGEN,URINE NEGATIVE mg/dL (<2.0)
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
[2019-05-29 21:24] LABS: ALANINE AMINOTRANSFERASE 22 U/L (21-72); ALBUMIN 4.4 g/dL (3.5-5.0); ALKALINE PHOSPHATASE 89 U/L (38-126); ANION GAP 7 (5-19); ASPARTATE AMINO TRANSFERASE 25 U/L (17-59); BILIRUBIN,DIRECT 0.3 mg/dL (0.0-0.4); BILIRUBIN,TOTAL 0.3 mg/dL (0.2-1.3); BLOOD UREA NITROGEN 16 mg/dL (7-20); CALCIUM 9.3 mg/dL (8.4-10.2); CARBON DIOXIDE 30 mmol/L (22-30); CHLORIDE 103 mmol/L (98-107); GLUCOSE 115 mg/dL (75-110); POTASSIUM 4.4 mmol/L (3.6-5.0); SODIUM 140.4 mmol/L (137-145); TOTAL PROTEIN 7.5 g/dL (6.3-8.2)
[2019-05-29 21:27] LABS: ACETAMINOPHEN < 10 ug/mL (10-30); ALCOHOL < 10 mg/dL (NONE DETECTED); SALICYLATE < 1.0 mg/dL (2.0-20.0)
[2019-05-29 21:33] LABS: URINE AMPHETAMINES SCREEN NEGATIVE; URINE BARBITURATES SCREEN NEGATIVE; URINE BENZODIAZEPINES SCREEN NEGATIVE; URINE COCAINE SCREEN UNCONFIRMED POSITIVE; URINE MARIJUANA (THC) SCREEN UNCONFIRMED POSITIVE; URINE METHADONE SCREEN NEGATIVE; URINE PHENCYCLIDINE SCREEN NEGATIVE
[2019-05-29] MEDS ORDERED: AMLODIPINE BESYLATE 10 MG TABLET PO ONE (22:01)
[2019-05-29] MEDS ORDERED: LOSARTAN POTASSIUM 50 MG TABLET PO ONE (22:01)
[2019-05-29] MEDS ORDERED: IBUPROFEN 800 MG TABLET PO ONE (22:01)
--- NOTE | 2019-05-30 07:32 | EKG REPORT ---
SEVERITY:- BORDERLINE ECG - SINUS RHYTHM NONSPECIFIC ST-T CHANGES INFERIOR LEADS : Confirmed by: Duke Deleon MD 30-May-2019 07:31:27
[2019-05-30 09:56] VITALS: BP 167/123
[2019-05-30] MEDS ORDERED: AMLODIPINE BESYLATE 10 MG TABLET PO ONE (10:31)
[2019-05-30] MEDS ORDERED: LORAZEPAM 1 MG TABLET PO ONE (12:46)
--- NOTE | 2019-05-30 13:34 | ER Document Report ---
Doctor's Note Notes: 05/30/19 13:30 Patient was seen and evaluated. Patient history of substance abuse. History of alcohol abuse. Was having some suicidal ideation. Was seen by mental health. Currently they deemed that patient is stable. Had a long discussion. At this time I believe patient is stable for outpatient treatment. He is going to have to decide if he wants to continue with substance abuse and alcohol. I did give him 1 Ativan while in the ER. We did a soft handoff with [facility]. Please see mental health note. At this time of comfortable discharging in stable condition. Of note, patient has hypertension but has not been taking his medications. Will refill his prescriptions. Discharge - Discharge Clinical Impression: Suicidal ideations, Substance abuse Hypertension Qualifiers: Hypertension type: unspecified Qualified Code(s): I10 - Essential (primary) hypertension Condition: Stable Disposition: HOME, SELF-CARE Instructions: High Blood Pressure, Requiring Treatment ([facility]) Additional Instructions: You have been evaluated by the medical team for your emergent medical concern and deemed appropriate for discharge for that medical concern. Your blood pressure was high as well so we are prescribing you your blood pressure medication. It would be very important that you take it daily as prescribed. In the event that you begin to notice any hallucinations, confusion, extremely high heart rate or blood pressure then it is possible that you could be going into withdrawals if you do decide to stop drinking. That would be very important that you return here for repeat evaluation you are encouraged to follow-up with [facility] for your mental health and substance abuse services. CHRONIC ALCOHOLISM and ALCOHOL ABUSE: Your evaluation reveals evidence of chronic alcoholism, an addiction to alcohol. The tendency to alcoholism may be inherited. Chronic use of alcohol weakens muscles, causes fatty deposits in the liver, damages the stomach, makes you more prone to infections, and can cause defects in unborn children. In the long run, brain atrophy and cirrhosis of the liver result. You are also at greater risk for certain types of cancer, such as cancer of the mouth, throat, stomach, and liver. Counselling services are available to help you. In-hospital treatment programs often help. Support groups such as Alcoholics Anonymous can be very us eful in beating this addiction. Your physician can make a referral for you. As alcoholics often are prone to other addictions, you should discuss your use of any other medications with the doctor. ALCOHOL WITHDRAWAL: Your symptoms are caused by alcohol withdrawal. After a period of frequent drinking, the brain and body are changed by the alcohol. When you quit or reduce your drinking, the nervous system becomes unstable. Withdrawal symptoms can start a few hours after your last drink, but sometimes don't begin until a couple of days later. Symptoms can include shakiness, sweating, insomnia, nausea, vomiting, fearfulness, hallucinations, and seizures. In addition to the acute effects of alcohol withdrawal, we often have to deal with the medical effects of alcoholism. These problems often include dehydration, stomach irritation, intestinal bleeding, low blood sugar, liver disease, and pancreas inflammation. Treatment for alcohol withdrawal includes mild sedatives, vitamins, and fluids. You need to be with someone who can help if symptoms become severe. Many patients can withdraw at home. Admission to the hospital or a detox facility may be necessary if withdrawal symptoms are severe and uncontrollable. Abstaining from alcohol is the only effective long-term treatment. If you start drinking again, you will not be able to control yourself after the first drink. Treatment programs are available. In addition, many alcoholics benefit from Alcoholics Anonymous or other support groups available through your counselor or [facility] yield analyst. AL-ANON and ALA-TEEN are support groups for friends and family members of an alcoholic. Go to the emergency room if you develop persistent vomiting, severe abdominal pain, fever, shortness of breath, hallucinations, uncontrollable tremors, or seizures. COCAINE ABUSE: Cocaine causes many dangerous medical problems. Problems can occur even with "usual" amounts. Cocaine affects judgement, creating a sense of invulnerability. Cocaine users often make bad decisions that seem "great" at the time. Most cocaine users eventually will be hurt by bad job performance, damaged personal relations, crime, and unsafe sexual practices. Toxic effects of cocaine can include seizures, hallucinations, delusions, high blood pressure, heart damage, or sudden . There's always the risk of a "bad batch." But heart attacks, brain hemorrhages, or cardiac arrest can occur unpredictably even with "normal" use. Injection of cocaine is risky for abscesses, endocarditis (heart infection), pneumonia, and AIDS. Withdrawal from cocaine often causes anxiety and drug cravings. Some users become paranoid and psychotic. Many treatment programs are available, but you must make the decision to quit. Medication can be prescribed to control the symptoms of cocaine toxicity (beta blockers or benzodiazepines). Withdrawal symptoms may require tranquilize rs. FOLLOW-UP CARE: If you have been referred to a physician for follow-up care, call the physicians office for an appointment as you were instructed or within the next two days. If you experience worsening or a significant change in your symptoms, notify the physician immediately or return to the Emergency Department at any time for re-evaluation. Prescriptions: Amlodipine Besylate [Norvasc 10 mg Tablet] 10 mg PO DAILY 30 Days #30 tablet Losartan Potassium 100 mg PO QAM 30 Days #30 tablet Forms: Parent Work Note Referrals: [facility] [Outside] - Follow up as needed
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
== END 2019-05-30 14:00 | disposition home or self-care (01) ==
LOC: ER 19:50
DX: R45.851 Suicidal ideations (principal); F14.10 Cocaine abuse, uncomplicated; F12.10 Cannabis abuse, uncomplicated; I10 Essential (primary) hypertension; T46.1X6A Underdosing of calcium-channel blockers, initial encounter; T46.5X6A Underdosing of other antihypertensive drugs, initial encounter; F32.9 Major depressive disorder, single episode, unspecified; T43.296A Underdosing of other antidepressants, initial encounter; Z91.128 Patient's intentional underdosing of medication regimen for other reason; Z91.14 Patient's other noncompliance with medication regimen; F17.200 Nicotine dependence, unspecified, uncomplicated; R63.0 Anorexia; Z59.0 Homelessness; Z88.8 Allergy status to other drugs, medicaments and biological substances; Z63.5 Disruption of family by separation and divorce
CPT/HCPCS: 36415; 80053; 80307; 81001; 85025; 93005; 93010; 99285

== ENCOUNTER 2019-06-21 21:13 | Emergency (ER) | payer SELFPAY ==
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
[2019-06-21 22:19] LABS: TOTAL CELLS COUNTED % (AUTO) 100 %
[2019-06-21 22:19] LABS: APPEARANCE,URINE CLEAR; BILIRUBIN,URINE NEGATIVE (NEGATIVE); COLOR,URINE YELLOW; GLUCOSE, URINE NEGATIVE (NEGATIVE); KETONES,URINE NEGATIVE (NEGATIVE); LEUKOCYTE ESTERASE,URINE NEGATIVE (NEGATIVE); NITRITE,URINE NEGATIVE (NEGATIVE); PROTEIN,URINE NEGATIVE (NEGATIVE); UROBILINOGEN,URINE NEGATIVE mg/dL (<2.0)
[2019-06-21 22:26] LABS: ADD MANUAL MICROSCOPIC YES; RBC,URINE 20-30 /HPF; WBC,URINE 0-1 /HPF
[2019-06-21 22:27] LABS: ABSOLUTE MONOCYTES (AUTO) 0.9 10^3/uL (0.1-1.4); ABSOLUTE NEUT (AUTO) 6.4 10^3/uL (1.7-8.2); HEMOGLOBIN 14.6 g/dL (13.5-17.0); RED BLOOD COUNT 5.18 10^6/uL (4.35-5.55)
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
[2019-06-21 22:36] LABS: URINE AMPHETAMINES SCREEN NEGATIVE; URINE BARBITURATES SCREEN NEGATIVE; URINE BENZODIAZEPINES SCREEN NEGATIVE; URINE COCAINE SCREEN UNCONFIRMED POSITIVE; URINE MARIJUANA (THC) SCREEN NEGATIVE; URINE METHADONE SCREEN NEGATIVE; URINE PHENCYCLIDINE SCREEN NEGATIVE
[2019-06-21 22:36] LABS: ACETAMINOPHEN < 10 ug/mL (10-30); ALBUMIN 4.4 g/dL (3.5-5.0); ALCOHOL 46 mg/dL (NONE DETECTED); ALKALINE PHOSPHATASE 85 U/L (38-126); ANION GAP 13 (5-19); ASPARTATE AMINO TRANSFERASE 26 U/L (17-59); BILIRUBIN,DIRECT 0.2 mg/dL (0.0-0.4); BILIRUBIN,TOTAL 0.2 mg/dL (0.2-1.3); BLOOD UREA NITROGEN 24 mg/dL (7-20); CALCIUM 9.2 mg/dL (8.4-10.2); CARBON DIOXIDE 22 mmol/L (22-30); CHLORIDE 103 mmol/L (98-107); GLUCOSE 118 mg/dL (75-110); POTASSIUM 3.4 mmol/L (3.6-5.0); SALICYLATE < 1.0 mg/dL (2.0-20.0); TOTAL PROTEIN 7.1 g/dL (6.3-8.2)
[2019-06-21 22:50] LABS: ABSOLUTE LYMPHOCYTES (AUTO) 2.8 10^3/uL (0.5-4.7); BASOPHILS % (AUTO) 0.5 % (0-2); EOSINOPHILS % (AUTO) 0.2 % (0-6); LYMPHOCYTES % (AUTO) 27.6 % (13-45); MEAN CORPUSCULAR HEMOGLOBIN 28.1 pg (27.0-33.4); MEAN CORPUSCULAR HGB CONC 33.1 g/dL (32.0-36.0); MEAN CORPUSCULAR VOLUME 85 fl (80-97); MONOCYTES % (AUTO) 8.5 % (3-13); PLATELET COUNT 250 10^3/uL (150-450); RED CELL DISTRIBUTION WIDTH 15.6 % (11.5-14.0); SEGMENTED NEUTROPHILS % (AUTO) 63.2 % (42-78); WHITE BLOOD COUNT 10.1 10^3/uL (4.0-10.5)
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
[2019-06-21] MEDS ORDERED: DIAZEPAM 5 MG TABLET PO ONE (22:52)
[2019-06-22] MEDS ORDERED: DIAZEPAM INJ 10 MG/2 ML DISP.SYRIN IV ONE (00:52)
[2019-06-22] MEDS ORDERED: NIFEDIPINE 30 MG TAB.ER.24 PO ONE (00:52)
[2019-06-22] MEDS ORDERED: THIAMINE HCL 100 MG, FOLIC ACID 1 MG in NORMAL SALINE 250 ML IV ONE (02:01)
[2019-06-22] MEDS ORDERED: DIAZEPAM INJ 10 MG/2 ML DISP.SYRIN IV PRN (02:02)
[2019-06-22] MEDS ORDERED: THIAMINE HCL INJ 200 MG/2 ML VIAL ONE (03:26)
[2019-06-22] MEDS ORDERED: FOLIC ACID INJ 5 MG/1 ML 10 ML VIAL ONE (03:27)
--- NOTE | 2019-06-22 07:58 | EKG REPORT ---
SEVERITY:- NORMAL ECG - SINUS RHYTHM : Confirmed by: Duke Deleon MD 22-Jun-2019 07:58:00
--- NOTE | 2019-06-22 09:07 | PSYCHOLOGICAL NOTE ---
Psych Note - Psych Note Date seen by psych provider: 06/22/19 Time seen by psych provider: 07:45 Psych Note: Reason for Consult: Accidental Overdose Patient states that he was recently started on antidepressant bipolar medications citalopram and Wellbutrin. Patient states he was also started on prednisone and Bactrim to treat hidradenitis. Patient states that he put all of his pills on one bottle and thought that he was taking them correctly although he realized that he had been taking his citalopram and a tapered dose. Patient adamantly denies suicidal ideation and reports that he is not had difficulty since seeing clinician on 05/30/2019. Patient reports that he put all his medications in 1 bottle and accidentally was taking the wrong medication in the wrong doses. Patient reports that he has from his however now has his own place to live. He denies have any further concerns. Patient is alert and orientated to person, place, time and circumstance. Mood is euthymic with congruent affect. Patient denies suicidal and homicidal id eation. Delusions are absent behaviors congruent with an intact reality based presentation i.e. organized linear thought process. Eye contact was well- maintained. Conversational speech is within normal rate, tone and prosody. Intellectual abilities appear to be within the average range. Attention and concentration are currently good. Insight, judgment, impulse control are historically poor for this patient due to substance abuse Polysubstance abuse No medication recommendations at this time Impression\plan: Patient is cleared from acute psychiatric services. Patient adamantly denies suicidal ideation and confirms he is seeing [facility] for his outpatient services. Patient states that he started multiple medications and accidentally was taking the wrong medications in the wrong doses. Patient immediately came to [facility] for medical assistance. Clinician provided psychoeducation on the importance of not mixing her medications and one bottle and looking at labels to ensure you are taking the proper medication as directed. Clinician notes the patient was banned for 5 years on 01/20/2019 from [facility] unless there is an emergent medical need which patient was seen for upon initial arrival. At this time, the patient needs to follow-up with [facility] mobile crisis for continued assistance. Dr. Martin was consulted and the care management of this patient; attending physicians in agreement with recommendations and disposition.
--- NOTE | 2019-06-22 09:55 | ER Document Report ---
Doctor's Note Notes: 06/22/19 09:55 Patient seen and examined, vital signs reviewed, patient appeared well on exam, he was complaining of a sore throat, he was swab for strep, this was negative, advised to read his medication labels more carefully in the future, patient was agreeable, and he was discharged home, and he was seen by the behavioral health team, and they are agreeable with discharge as well.
[2019-06-22 10:28] VITALS: BP 148/101
== END 2019-06-22 10:28 | disposition home or self-care (01) ==
LOC: ER 21:13
DX: T50.904A Poisoning by unspecified drugs, medicaments and biological substances, undetermined, initial encounter (principal); F14.10 Cocaine abuse, uncomplicated; F10.920 Alcohol use, unspecified with intoxication, uncomplicated; F12.90 Cannabis use, unspecified, uncomplicated; F15.90 Other stimulant use, unspecified, uncomplicated; I10 Essential (primary) hypertension; J02.9 Acute pharyngitis, unspecified; Z79.899 Other long term (current) drug therapy; F32.9 Major depressive disorder, single episode, unspecified; F41.9 Anxiety disorder, unspecified; F17.210 Nicotine dependence, cigarettes, uncomplicated
CPT/HCPCS: 93005; 99285; 96375; 96365; 96366; 36415; 87070; 87880; 80307 ×4; 83735; 84443; 85025; 80053; 81001; 84484; 71046; 93010; J3360; J3490; J3411; J7050

== ENCOUNTER 2020-04-26 11:37 | Observation (INO) | payer SELFPAY ==
[2020-04-26] MEDS ORDERED: NORMAL SALINE 1000 ML 1,000 ML IV ONE (11:58)
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
[2020-04-26] MEDS ORDERED: PIPERACILLIN/TAZOBACTAM 3.375 GM VIAL IV ONE (12:17)
[2020-04-26] MEDS ORDERED: VANCOMYCIN HCL INJ 1000 MG VIAL IV ONE (12:17)
[2020-04-26] MEDS ORDERED: ONDANSETRON HCL INJ/PF 4 MG/2 ML SDV IV ONE (12:19)
[2020-04-26] MEDS ORDERED: MORPHINE SULFATE 10 MG/ML INJ IV ONE (12:19)
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
[2020-04-26 12:56] LABS: ABSOLUTE BASOPHILS # (AUTO) 0.1 10^3/uL (0.0-0.2); ABSOLUTE EOSINOPHILS # (AUTO) 0.2 10^3/uL (0.0-0.6); ABSOLUTE LYMPHOCYTES (AUTO) 2.7 10^3/uL (0.5-4.7); ABSOLUTE NEUT (AUTO) 9.1 10^3/uL (1.7-8.2); BASOPHILS % (AUTO) 0.8 % (0-2); EOSINOPHILS % (AUTO) 1.6 % (0-6); HEMATOCRIT 45.1 % (37.9-51.0); HEMOGLOBIN 15.4 g/dL (13.5-17.0); LYMPHOCYTES % (AUTO) 20.8 % (13-45); MEAN CORPUSCULAR HEMOGLOBIN 28.3 pg (27.0-33.4); MEAN CORPUSCULAR HGB CONC 34.2 g/dL (32.0-36.0); MEAN CORPUSCULAR VOLUME 83 fl (80-97); MONOCYTES % (AUTO) 7.5 % (3-13); PLATELET COUNT 243 10^3/uL (150-450); RED BLOOD COUNT 5.45 10^6/uL (4.35-5.55); RED CELL DISTRIBUTION WIDTH 16.7 % (11.5-14.0); SEGMENTED NEUTROPHILS % (AUTO) 69.3 % (42-78); TOTAL CELLS COUNTED % (AUTO) 100 %; WHITE BLOOD COUNT 13.2 10^3/uL (4.0-10.5)
[2020-04-26 12:59] LABS: VENOUS BLOOD BASE EXCESS -1.4 mmol/L; VENOUS BLOOD PCO2 47.6 mmHg (35-63); VENOUS BLOOD PH 7.34 (7.30-7.42)
[2020-04-26] MEDS ORDERED: VANCOMYCIN HCL 0 MG in DEXTROSE 5%-WATER 250 ML IV NR (13:00)
[2020-04-26 13:12] LABS: ALBUMIN 4.5 g/dL (3.5-5.0); ALKALINE PHOSPHATASE 94 U/L (38-126); ANION GAP 9 (5-19); ASPARTATE AMINO TRANSFERASE 23 U/L (17-59); BILIRUBIN,TOTAL 0.3 mg/dL (0.2-1.3); BLOOD UREA NITROGEN 10 mg/dL (7-20); CALCIUM 9.3 mg/dL (8.4-10.2); CARBON DIOXIDE 24 mmol/L (22-30); CHLORIDE 108 mmol/L (98-107); GLUCOSE 76 mg/dL (75-110); POTASSIUM 3.3 mmol/L (3.6-5.0); TOTAL PROTEIN 7.7 g/dL (6.3-8.2)
[2020-04-26] MEDS ORDERED: POTASSI CL 20 MEQ/50 ML RIDER 20 MEQ/50 ML RTUPB IV ONE (13:22)
[2020-04-26 13:24] LABS: INTERNATIONAL RATION (INR) 0.94; PROTHROMBIN TIME 12.6 SEC (11.4-15.4)
--- NOTE | 2020-04-26 13:43 | PDOC H&P ---
History of Present Illness Patient complains of: Pain, swelling, drainage related to a perineal abscess History of Present Illness: JF LAN is a 35 year old male with a 2-day history of pain and swelling of the perineum. The patient reports that he experienced fevers and chills overnight. This morning, the patient is draining purulent material. The patient is a long history of hidradenitis, and has had multiple abscesses in the axilla and in the groin. Patient denies any nausea, vomiting, abdominal pain, abdominal distention, chest pain, shortness of breath, cough, fatigue, malaise, blurry vision, dizziness, orthostasis. He rates his pain as 8 out of 10. It is dull, throbbing, and constant. Palpation makes it worse, nothing makes it better. His symptoms have been present for 2 days, and have been worsening steadily. Surgery was consulted for definitive treatment. 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 ABSENT: anorexia, fatigue, headache(s), night sweats, weakness Eyes: ABSENT: visual disturbances Ears: ABSENT: hearing changes Nose, Mouth, and Throat: ABSENT: sore throat Cardiovascular: ABSENT: chest pain Respiratory: ABSENT: cough, dyspnea Gastrointestinal: ABSENT: abdominal pain, bloating, nausea, vomiting Genitourinary: ABSENT: dysuria Musculoskeletal: ABSENT: back pain Integumentary: PRESENT: other - Painful swelling in the perineum, extending onto the scrotum Neurological: ABSENT: confusion, convulsions, dizziness Psychiatric: ABSENT: anxiety, depression Endocrine: ABSENT: cold intolerance, heat intolerance Hematologic/Lymphatic: ABSENT: easy bleeding, easy bruising Physical Exam Vital Signs: Temp Pulse Resp BP Pulse Ox 98.5 F 136 H 20 160/125 H 97 04/26/20 11:49 04/26/20 11:48 04/26/20 11:48 04/26/20 11:48 04/26/20 12:20 Intake & Output 04/25/20 04/26/20 04/27/20 06:59 06:59 06:59 Weight 90 kg General appearance: PRESENT: no acute distress, cooperative Head exam: PRESENT: atraumatic, normocephalic Eye exam: PRESENT: EOMI, PERRLA. ABSENT: scleral icterus Mouth exam: PRESENT: moist, neck supple Neck exam: ABSENT: meningismus, tenderness, thyromegaly, tracheal deviation Respiratory exam: PRESENT: unlabored. ABSENT: tachypnea, wheezes Cardiovascular exam: PRESENT: tachycardia - Mild Vascular exam: PRESENT: normal capillary refill. ABSENT: pallor GI/Abdominal exam: PRESENT: soft. ABSENT: distended, guarding, rigid, tenderness Rectal exam: PRESENT: deferred Gentrourinary exam: PRESENT: other - Swelling and tenderness to the left perineum. There is purulent material emanating from a small wound. He has scarring indicative of previous surgery in the area. The induration extends onto the posterior left alessio-scrotum. Extremities exam: ABSENT: clubbing Neurological exam: PRESENT: alert, awake, oriented to person, oriented to place, oriented to time, oriented to situation, CN II-XII grossly intact. ABSENT: motor sensory deficit Psychiatric exam: ABSENT: agitated, anxious, depressed Focused psych exam: ABSENT: delusional Skin exam: PRESENT: erythema. ABSENT: cyanosis, jaundice Results Laboratory Results: 04/26/20 12:20 VBG pH 7.34 VBG pCO2 47.6 VBG HCO3 25.0 VBG Base Excess -1.4 Impressions: Chest X-Ray 04/26/20 11:56 IMPRESSION: No acute pulmonary findings. Assessment & Plan - Diagnosis (1) Perineal abscess Is this a current diagnosis for this admission?: Yes - Plan Summary Plan Summary: This is a 35-year-old male with a perineal abscess. The patient ate immediately before coming to the emergency department. He is not in any excessive distress. Plan to admit the patient to the hospital, start intravenous antibiotics, make him n.p.o., and plan for surgery first thing tomorrow morning. Stat COVID-19 test today. This has been discussed with the patient at length. Risks/benefits discussed, informed consent obtained, and all questions answered.
[2020-04-26] MEDS: KETOROLAC TROMETHAMINE INJ/PF 30 MG/1 ML SDV IV SCH ×2 (14:53→21:23)
[2020-04-26] MEDS: ACETAMINOPHEN 1,000 MG/100 ML RTUPB IV SCH ×2 (14:53→21:22)
[2020-04-26] MEDS: NORMAL SALINE 1000 ML 1,000 ML IV PRN (14:55)
[2020-04-26] MEDS: PIPERACILLIN SODIUM/TAZOBACTAM 3.375 GM in NORMAL SALINE 100 ML IV SCH ×2 (17:39→23:12)
[2020-04-26] MEDS: AMLODIPINE BESYLATE 10 MG TABLET PO SCH (17:39)
[2020-04-26] MEDS: LOSARTAN POTASSIUM 50 MG TABLET PO SCH (17:39)
[2020-04-26 20:21] LABS: APPEARANCE,URINE CLEAR; BILIRUBIN,URINE NEGATIVE (NEGATIVE); COLOR,URINE YELLOW; GLUCOSE, URINE NEGATIVE (NEGATIVE); KETONES,URINE NEGATIVE (NEGATIVE); LEUKOCYTE ESTERASE,URINE NEGATIVE (NEGATIVE); NITRITE,URINE NEGATIVE (NEGATIVE); PROTEIN,URINE NEGATIVE (NEGATIVE); URINE SPECIFIC GRAVITY 1.024; UROBILINOGEN,URINE NEGATIVE mg/dL (<2.0)
[2020-04-26] MEDS: FAMOTIDINE 20 MG TABLET PO SCH (21:23)
[2020-04-26] MEDS: VANCOMYCIN HCL 1,250 MG in DEXTROSE 5%-WATER 250 ML IV SCH (21:23)
--- NOTE | 2020-04-26 21:51 | EKG REPORT ---
SEVERITY:- ABNORMAL ECG - SINUS TACHYCARDIA FIRST DEGREE AV BLOCK PROBABLE LEFT ATRIAL ABNORMALITY LEFT VENTRICULAR HYPERTROPHY ANTERIOR Q WAVES, POSSIBLY DUE TO LVH : Confirmed by: Gabriella Lynn MD 26-Apr-2020 21:50:56
[2020-04-26] MEDS: MORPHINE SULFATE 10 MG/ML INJ IV PRN (23:40)
[2020-04-26] MEDS: ONDANSETRON HCL INJ/PF 4 MG/2 ML SDV IV PRN (23:40)
[2020-04-27] MEDS ORDERED: HYDRALAZINE HCL INJ/PF 20 MG/1 ML SDV ONE (00:38)
[2020-04-27] MEDS ORDERED: HYDRALAZINE HCL INJ/PF 20 MG/1 ML SDV IV PRN (00:40)
[2020-04-27] MEDS: HYDRALAZINE HCL INJ/PF 20 MG/1 ML SDV IV PRN ×3 (00:46→12:21)
[2020-04-27] MEDS: ACETAMINOPHEN 1,000 MG/100 ML RTUPB IV SCH (05:19)
[2020-04-27] MEDS: PIPERACILLIN SODIUM/TAZOBACTAM 3.375 GM in NORMAL SALINE 100 ML IV SCH ×2 (05:20→12:01)
[2020-04-27] MEDS: KETOROLAC TROMETHAMINE INJ/PF 30 MG/1 ML SDV IV SCH ×3 (05:20→21:19)
[2020-04-27] MEDS: VANCOMYCIN HCL 1,250 MG in DEXTROSE 5%-WATER 250 ML IV SCH (06:35)
[2020-04-27 07:07] LABS: ABSOLUTE BASOPHILS # (AUTO) 0.1 10^3/uL (0.0-0.2); ABSOLUTE EOSINOPHILS # (AUTO) 0.3 10^3/uL (0.0-0.6); ABSOLUTE LYMPHOCYTES (AUTO) 2.2 10^3/uL (0.5-4.7); ABSOLUTE MONOCYTES (AUTO) 0.7 10^3/uL (0.1-1.4); ABSOLUTE NEUT (AUTO) 6.5 10^3/uL (1.7-8.2); BASOPHILS % (AUTO) 0.5 % (0-2); EOSINOPHILS % (AUTO) 2.8 % (0-6); HEMATOCRIT 49.6 % (37.9-51.0); HEMOGLOBIN 16.9 g/dL (13.5-17.0); LYMPHOCYTES % (AUTO) 22.8 % (13-45); MEAN CORPUSCULAR HEMOGLOBIN 28.7 pg (27.0-33.4); MEAN CORPUSCULAR HGB CONC 34.1 g/dL (32.0-36.0); MEAN CORPUSCULAR VOLUME 84 fl (80-97); MONOCYTES % (AUTO) 7.3 % (3-13); PLATELET COUNT 210 10^3/uL (150-450); RED BLOOD COUNT 5.89 10^6/uL (4.35-5.55); RED CELL DISTRIBUTION WIDTH 16.7 % (11.5-14.0); SEGMENTED NEUTROPHILS % (AUTO) 66.6 % (42-78); TOTAL CELLS COUNTED % (AUTO) 100 %; WHITE BLOOD COUNT 9.7 10^3/uL (4.0-10.5)
[2020-04-27 07:30] LABS: ANION GAP 13 (5-19); BLOOD UREA NITROGEN 9 mg/dL (7-20); CALCIUM 9.7 mg/dL (8.4-10.2); CARBON DIOXIDE 21 mmol/L (22-30); CHLORIDE 106 mmol/L (98-107); GLUCOSE 90 mg/dL (75-110); POTASSIUM 3.7 mmol/L (3.6-5.0)
[2020-04-27] MEDS: MORPHINE SULFATE 10 MG/ML INJ IV PRN ×3 (07:39→19:00)
[2020-04-27] MEDS ORDERED: FENTANYL CITRATE INJ/PF 100 MCG/2 ML AMPUL ONE (08:03)
[2020-04-27] MEDS ORDERED: MIDAZOLAM 2 MG/2 ML INJ ONE (08:04)
[2020-04-27] MEDS ORDERED: ONDANSETRON HCL INJ/PF 4 MG/2 ML SDV ONE (08:04)
[2020-04-27] MEDS ORDERED: PROPOFOL INJ 200 MG/20 ML VIAL IV ONE (08:04)
[2020-04-27] MEDS ORDERED: MORPHINE SULFATE 10 MG/ML INJ ONE (08:04)
--- NOTE | 2020-04-27 08:11 | PDOC PROGRESS REPORT ---
Subjective Progress Note for:: 04/27/20 Subjective:: 35-year-old male with a perineal abscess. He continues to complain of pain and drainage. He denies chest pain, shortness of breath, nausea, vomiting, melena, hematochezia, dizziness, orthostasis, fatigue, or malaise. Reason For Visit: PERINEAL ABSCESS Physical Exam Vital Signs: Temp Pulse Resp BP Pulse Ox 97.9 F 80 18 158/109 H 100 04/27/20 04:26 04/27/20 04:26 04/27/20 04:26 04/27/20 04:26 04/27/20 04:26 Intake & Output 04/26/20 04/27/20 04/28/20 06:59 06:59 06:59 Intake Total 2049 Balance 2049 Weight 92.5 kg General appearance: PRESENT: no acute distress, cooperative Head exam: PRESENT: atraumatic, normocephalic Eye exam: PRESENT: EOMI, PERRLA Mouth exam: PRESENT: moist, neck supple Neck exam: ABSENT: meningismus, tenderness, thyromegaly, tracheal deviation Respiratory exam: PRESENT: unlabored. ABSENT: tachypnea, wheezes Cardiovascular exam: ABSENT: tachycardia GI/Abdominal exam: ABSENT: distended, soft, tenderness Rectal exam: PRESENT: deferred Gentrourinary exam: PRESENT: erythema, other - Perineal abscess with purulent drainage. Induration and erythema extending onto the posterior scrotum. Extremities exam: ABSENT: clubbing Musculoskeletal exam: ABSENT: deformity Neurological exam: PRESENT: alert, awake, oriented to person, oriented to place, oriented to time, oriented to situation, CN II-XII grossly intact Psychiatric exam: ABSENT: agitated, anxious, depressed Focused psych exam: ABSENT: delusional Skin exam: ABSENT: cyanosis, erythema, jaundice Results Laboratory Results: 04/27/20 06:18 04/27/20 06:18 04/26/20 04/26/20 04/26/20 12:20 12:20 12:20 WBC 13.2 H RBC 5.45 Hgb 15.4 Hct 45.1 MCV 83 MCH 28.3 MCHC 34.2 RDW 16.7 H Plt Count 243 Seg Neutrophils % 69.3 VBG pH 7.34 VBG pCO2 47.6 VBG HCO3 25.0 VBG Base Excess -1.4 Sodium 140.7 Potassium 3.3 L Chloride 108 H Carbon Dioxide 24 Anion Gap 9 BUN 10 Creatinine 0.84 Est GFR ( Amer) > 60 Glucose 76 Lactic Acid Calcium 9.3 Total Bilirubin 0.3 AST 23 Alkaline Phosphatase 94 Total Protein 7.7 Albumin 4.5 Urine Color Urine Appearance Urine pH Ur Specific [place] Urine Protein Urine Glucose (UA) Urine Ketones Urine Blood Urine Nitrite Ur Leukocyte Esterase Urine WBC (Auto) Urine RBC (Auto) 04/26/20 04/26/20 04/27/20 12:20 20:00 06:18 WBC 9.7 RBC 5.89 H Hgb 16.9 Hct 49.6 MCV 84 MCH 28.7 MCHC 34.1 RDW 16.7 H Plt Count 210 Seg Neutrophils % 66.6 VBG pH VBG pCO2 VBG HCO3 VBG Base Excess Sodium Potassium Chloride Carbon Dioxide Anion Gap BUN Creatinine Est GFR ( Amer) Glucose Lactic Acid 0.9 Calcium Total Bilirubin AST Alkaline Phosphatase Total Protein Albumin Urine Color YELLOW Urine Appearance CLEAR Urine pH 7.0 Ur Specific [place] 1.024 Urine Protein NEGATIVE Urine Glucose (UA) NEGATIVE Urine Ketones NEGATIVE Urine Blood NEGATIVE Urine Nitrite NEGATIVE Ur Leukocyte Esterase NEGATIVE Urine WBC (Auto) 2 Urine RBC (Auto) 4 04/27/20 06:18 WBC RBC Hgb Hct MCV MCH MCHC RDW Plt Count Seg Neutrophils % VBG pH VBG pCO2 VBG HCO3 VBG Base Excess Sodium 139.8 Potassium 3.7 Chloride 106 Carbon Dioxide 21 L Anion Gap 13 BUN 9 Creatinine 0.75 Est GFR ( Amer) > 60 Glucose 90 Lactic Acid Calcium 9.7 Total Bilirubin AST Alkaline Phosphatase Total Protein Albumin Urine Color Urine Appearance Urine pH Ur Specific [place] Urine Protein Urine Glucose (UA) Urine Ketones Urine Blood Urine Nitrite Ur Leukocyte Esterase Urine WBC (Auto) Urine RBC (Auto) 04/26/20 12:20 Troponin I < 0.012 Impressions: Chest X-Ray 04/26/20 11:56 IMPRESSION: No acute pulmonary findings. Assessment & Plan - Diagnosis (1) Perineal abscess Is this a current diagnosis for this admission?: Yes - Plan Summary Plan Summary: 35-year-old male with a perineal abscess. Plan for OR drainage today. Risks/benefits discussed, informed consent obtained, and all questions answered.
[2020-04-27] MEDS ORDERED: BUPIVACAINE HCL 0.25 % INJ/PF (2.5 MG/1 ML) 30 ML VIAL ONE (09:30)
[2020-04-27] MEDS ORDERED: (PENDING PHARMACY ID) (Losartan Potassium [Losartan Potassium] 100 MG) PO SCH (10:00)
[2020-04-27] MEDS ORDERED: OXYCODONE-ACETAMINOPHEN 5-325 MG TABLET PO PRN ×2 (10:32)
[2020-04-27] MEDS ORDERED: FENTANYL CITRATE INJ/PF 100 MCG/2 ML AMPUL IV PRN ×3 (10:32)
[2020-04-27] MEDS ORDERED: DIPHENHYDRAMINE HCL 50 MG/ML VIAL IV PRN ×2 (10:32→13:27)
[2020-04-27] MEDS ORDERED: ONDANSETRON HCL INJ/PF 4 MG/2 ML SDV IV PRN (10:32)
[2020-04-27] MEDS ORDERED: MEPERIDINE HCL/PF INJ 25 MG/1 ML DISP.SYRIN IV PRN (10:32)
[2020-04-27] MEDS ORDERED: MORPHINE SULFATE 10 MG/ML INJ IV PRN (10:32)
[2020-04-27] MEDS ORDERED: PROMETHAZINE HCL INJ 25 MG/1 ML VIAL IV PRN (10:32)
[2020-04-27] MEDS: AMLODIPINE BESYLATE 10 MG TABLET PO SCH (11:06)
[2020-04-27] MEDS: LOSARTAN POTASSIUM 50 MG TABLET PO SCH (11:07)
[2020-04-27] MEDS: FAMOTIDINE 20 MG TABLET PO SCH ×2 (11:07→21:19)
[2020-04-27] MEDS: ONDANSETRON HCL INJ/PF 4 MG/2 ML SDV IV PRN (12:21)
[2020-04-27] MEDS ORDERED: HYDROCODONE/ACETAMINOPHEN 10-325 MG TABLET PO PRN (13:21)
[2020-04-27] MEDS: SULFAMETHOXAZOLE/TRIMETHOPRIM 800-160 MG TABLET PO SCH ×2 (13:38→17:22)
[2020-04-27] MEDS: NORMAL SALINE 1000 ML 1,000 ML IV PRN (13:43)
[2020-04-27] MEDS ORDERED: DIPHENHYDRAMINE HCL 25 MG CAPSULE PO PRN (18:38)
[2020-04-28] MEDS: ONDANSETRON HCL INJ/PF 4 MG/2 ML SDV IV PRN (03:21)
[2020-04-28] MEDS: MORPHINE SULFATE 10 MG/ML INJ IV PRN ×2 (03:21→10:09)
--- NOTE | 2020-04-28 03:44 | Operative Report ---
Nonrecallable Operative Report DATE OF SURGERY: 04/27/20 PREOPERATIVE DIAGNOSIS: perineal abscess POSTOPERATIVE DIAGNOSIS: perineal abscess x2, in the background of chrnoic hidradenitis OPERATION: incision and drainage of perineal abscess x2 SURGEON: DAWSON LI ANESTHESIA: GA TISSUE REMOVED OR ALTERED: wound cx COMPLICATIONS: none apparent ESTIMATED BLOOD LOSS: minimal PROCEDURE: drains/implants: 4x4 gauze soaked in betadine Procedure in-detail: After informed consent was obtained, the patient was laid in the lithotomy position in the OR. The perineum was prepped and draped in a normal, sterile fashion. An incision was made over the area of maximal induration to the left of the midline on the perineum. This was performed with a 15 blade scalpel. Subcutaneous granulation tissue was encountered, as well a purulent fluid. The granulation tissue was cauterized. A second indurated area was found more medial to the first, at the margin of the left/posterior hemiscrotum. This was also incised with a scalpel. More purulent material and granulation tissue was identified. The wound was aggressively cleaned, and then cauterized. The wounds were packed with 4x4 gauze soaked in betadine. A dressing was fashioned, and the procedure was concluded. All sponge, instrument, and needle counts were correct x2. Condition: Stable.
[2020-04-28] MEDS: KETOROLAC TROMETHAMINE INJ/PF 30 MG/1 ML SDV IV SCH (05:22)
[2020-04-28] MEDS: HYDRALAZINE HCL INJ/PF 20 MG/1 ML SDV IV PRN (07:43)
--- NOTE | 2020-04-28 08:52 | PDOC DISCHARGE SUMMARY ---
General - Admit/Disc Date/PCP Admission Date/Primary Care Provider: 04/26/20 13:13 Discharge Date: 04/28/20 - Discharge Diagnosis Final Diagnosis: Acute perineal abscess, status post incision and drainage - Assessment Summary: Patient is a 35-year-old white male, well-known to the acute care surgery service, history of abscess drainage, presents emergency department complaining of a perineal and scrotal pain. Patient was found to have acute infection of the scrotum and perineum. He was admitted to the surgical service, taken to the operating room by Dr. Farhad Iqbal and underwent incision and drainage and packing of 2 wounds of the perineum. Patient was kept overnight, on antibiotics, then packing removed the following day. Patient was felt to have achieved source control and was discharged home with local wound care, and p.o. antibiotics. He will follow-up with [facility] in 1 to 2 weeks. - Additional Information Resuscitation Status: Full Code Discharge Diet: As Tolerated - Encourage patient to get in shower, with a hose and irrigate open wounds. Prescription for Flagyl, 500 mg p.o. 3 times a day on chart. Patient follow-up with [facility] in 1 to 2 weeks. Patient may take Tylenol Motrin as needed pain. Discharge Activity: Activity As Tolerated Referrals: DAWSON IQBAL MD [ACTIVE STAFF] - () Home Medications: Amlodipine Besylate [Norvasc 10 mg Tablet] 10 mg PO DAILY 04/26/20 Losartan Potassium 100 mg PO DAILY 04/26/20 History of Present Illiness History of Present Illness: JF LAN is a 35 year old male Physical Exam Vital Signs: Temp Pulse Resp BP Pulse Ox 98.2 F 61 17 147/100 H 99 04/28/20 07:28 04/28/20 07:28 04/28/20 07:28 04/28/20 07:28 04/28/20 07:28 Intake & Output 04/27/20 04/28/20 04/29/20 06:59 06:59 06:59 Intake Total 3050 1960 Output Total 20 Balance 3050 1940 Weight 92.5 kg 91.7 kg Results Laboratory Results: WBC 9.7 10^3/uL (4.0-10.5) 04/27/20 06:18 RBC 5.89 10^6/uL (4.35-5.55) H 04/27/20 06:18 Hgb 16.9 g/dL (13.5-17.0) 04/27/20 06:18 Hct 49.6 % (37.9-51.0) 04/27/20 06:18 MCV 84 fl (80-97) 04/27/20 06:18 MCH 28.7 pg (27.0-33.4) 04/27/20 06:18 MCHC 34.1 g/dL (32.0-36.0) 04/27/20 06:18 RDW 16.7 % (11.5-14.0) H 04/27/20 06:18 Plt Count 210 10^3/uL (150-450) 04/27/20 06:18 Lymph % (Auto) 22.8 % (13-45) 04/27/20 06:18 [place] % (Auto) 7.3 % (3-13) 04/27/20 06:18 Eos % (Auto) 2.8 % (0-6) 04/27/20 06:18 Baso % (Auto) 0.5 % (0-2) 04/27/20 06:18 Absolute Neuts (auto) 6.5 10^3/uL (1.7-8.2) 04/27/20 06:18 Absolute Lymphs (auto) 2.2 10^3/uL (0.5-4.7) 04/27/20 06:18 Absolute Monos (auto) 0.7 10^3/uL (0.1-1.4) 04/27/20 06:18 Absolute Eos (auto) 0.3 10^3/uL (0.0-0.6) 04/27/20 06:18 Absolute Basos (auto) 0.1 10^3/uL (0.0-0.2) 04/27/20 06:18 Seg Neutrophils % 66.6 % (42-78) 04/27/20 06:18 PT 12.6 SEC (11.4-15.4) 04/26/20 13:00 INR 0.94 04/26/20 13:00 INR (Anticoag Therapy) Cancelled 04/26/20 12:20 VBG pH 7.34 (7.30-7.42) 04/26/20 12:20 VBG pCO2 47.6 mmHg (35-63) 04/26/20 12:20 VBG HCO3 25.0 mmol/L (20-32) 04/26/20 12:20 VBG Base Excess -1.4 mmol/L 04/26/20 12:20 Sodium 139.8 mmol/L (137-145) 04/27/20 06:18 Potassium 3.7 mmol/L (3.6-5.0) 04/27/20 06:18 Chloride 106 mmol/L (98-107) 04/27/20 06:18 Carbon Dioxide 21 mmol/L (22-30) L 04/27/20 06:18 Anion Gap 13 (5-19) 04/27/20 06:18 BUN 9 mg/dL (7-20) 04/27/20 06:18 Creatinine 0.75 mg/dL (0.52-1.25) 04/27/20 06:18 Est GFR ( Amer) > 60 (>60) 04/27/20 06:18 Est GFR (MDRD) Non-Af > 60 (>60) 04/27/20 06:18 Glucose 90 mg/dL (75-110) 04/27/20 06:18 Lactic Acid 0.9 mmol/L (0.7-2.1) 04/26/20 12:20 Calcium 9.7 mg/dL (8.4-10.2) 04/27/20 06:18 Total Bilirubin 0.3 mg/dL (0.2-1.3) 04/26/20 12:20 Direct Bilirubin 0.0 mg/dL (0.0-0.4) 04/26/20 12:20 Neonat Total Bilirubin Not Reportable 04/26/20 12:20 Neonat Direct Bilirubin Not Reportable 04/26/20 12:20 Neonat Indirect Bili Not Reportable 04/26/20 12:20 AST 23 U/L (17-59) 04/26/20 12:20 ALT 22 U/L (<50) 04/26/20 12:20 Alkaline Phosphatase 94 U/L (38-126) 04/26/20 12:20 Troponin I < 0.012 ng/mL 04/26/20 12:20 Total Protein 7.7 g/dL (6.3-8.2) 04/26/20 12:20 Albumin 4.5 g/dL (3.5-5.0) 04/26/20 12:20 Urine Color YELLOW 04/26/20 20:00 Urine Appearance CLEAR 04/26/20 20:00 Urine pH 7.0 (5.0-9.0) 04/26/20 20:00 Ur Specific [place] 1.024 04/26/20 20:00 Urine Protein NEGATIVE mg/dL (NEGATIVE) 04/26/20 20:00 Urine Glucose (UA) NEGATIVE mg/dL (NEGATIVE) 04/26/20 20:00 Urine Ketones NEGATIVE mg/dL (NEGATIVE) 04/26/20 20:00 Urine Blood NEGATIVE (NEGATIVE) 04/26/20 20:00 Urine Nitrite NEGATIVE (NEGATIVE) 04/26/20 20:00 Urine Bilirubin NEGATIVE (NEGATIVE) 04/26/20 20:00 Urine Urobilinogen NEGATIVE mg/dL (<2.0) 04/26/20 20:00 Ur Leukocyte Esterase NEGATIVE (NEGATIVE) 04/26/20 20:00 Urine WBC (Auto) 2 /HPF 04/26/20 20:00 Urine RBC (Auto) 4 /HPF 04/26/20 20:00 Squamous Epi Cells Auto <1 /HPF 04/26/20 20:00 Urine Mucus (Auto) RARE /LPF 04/26/20 20:00 Urine Ascorbic Acid NEGATIVE (NEGATIVE) 04/26/20 20:00 SARS-CoV-2 (PCR) NEGATIVE (NEGATIVE) 04/26/20 13:40 04/26/20 12:20 Troponin I < 0.012 Impressions: Chest X-Ray 04/26/20 11:56 IMPRESSION: No acute pulmonary findings.
[2020-04-28] MEDS: SULFAMETHOXAZOLE/TRIMETHOPRIM 800-160 MG TABLET PO SCH (10:20)
[2020-04-28] MEDS: FAMOTIDINE 20 MG TABLET PO SCH (10:20)
[2020-04-28] MEDS: AMLODIPINE BESYLATE 10 MG TABLET PO SCH (10:20)
[2020-04-28] MEDS: LOSARTAN POTASSIUM 50 MG TABLET PO SCH (10:21)
[2020-04-28 12:30] VITALS: BP 172/105
[2020-04-28] MEDS ORDERED: ONDANSETRON HCL INJ/PF 4 MG/2 ML SDV IV PRN (14:00)
[2020-04-28] MEDS ORDERED: SULFAMETHOXAZOLE/TRIMETHOPRIM 800-160 MG TABLET PO SCH (22:00)
== END 2020-04-28 11:30 | disposition home or self-care (01) ==
LOC: ER 11:37 → EH 13:13 → INTOOBSV 13:13 → 4N 13:59
PROVIDERS: ATTEND Surgery
DX: L02.215 Cutaneous abscess of perineum (principal); L73.2 Hidradenitis suppurativa; N49.2 Inflammatory disorders of scrotum; Z72.0 Tobacco use; I10 Essential (primary) hypertension; A41.9 Sepsis, unspecified organism; F12.10 Cannabis abuse, uncomplicated; Z98.890 Other specified postprocedural states; Z79.899 Other long term (current) drug therapy; Z03.818 Encounter for observation for suspected exposure to other biological agents ruled out
CPT/HCPCS: 93005; 99285; 96375; 96365; 96368; 36415 ×2; 87040; 87086; 87070; 87205; 83605; 85025 ×2; 85610; 87635; 80048; 80053; 81001; 84484; 82803; 71045; 93010; 10061; J2250; J1200; J3010; J0360 ×2; J1885 ×3; J2270 ×3; J2405 ×3; J3480; J7060 ×2; J7050 ×2; J7030 ×2; J2704; J3370 ×2; J2543 ×2; J0131 ×2; C9803; 400; 87075; 99140

== ENCOUNTER 2020-09-01 19:34 | Emergency (ER) | payer OTHER, SELFPAY ==
[2020-09-01] MEDS ORDERED: NORMAL SALINE 1000 ML 1,000 ML IV ONE (20:24)
[2020-09-01] MEDS ORDERED: VANCOMYCIN HCL INJ 1000 MG VIAL IV ONE (20:24)
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
[2020-09-01 20:48] LABS: ABSOLUTE EOSINOPHILS # (AUTO) 0.3 10^3/uL (0.0-0.6); ABSOLUTE LYMPHOCYTES (AUTO) 1.2 10^3/uL (0.5-4.7); ABSOLUTE MONOCYTES (AUTO) 1.1 10^3/uL (0.1-1.4); ABSOLUTE NEUT (AUTO) 12.8 10^3/uL (1.7-8.2); BASOPHILS % (AUTO) 0.2 % (0-2); EOSINOPHILS % (AUTO) 2.2 % (0-6); HEMATOCRIT 44.6 % (37.9-51.0); HEMOGLOBIN 15.6 g/dL (13.5-17.0); MEAN CORPUSCULAR HEMOGLOBIN 29.7 pg (27.0-33.4); MEAN CORPUSCULAR VOLUME 85 fl (80-97); MONOCYTES % (AUTO) 6.9 % (3-13); PLATELET COUNT 229 10^3/uL (150-450); RED BLOOD COUNT 5.24 10^6/uL (4.35-5.55); RED CELL DISTRIBUTION WIDTH 14.6 % (11.5-14.0); SEGMENTED NEUTROPHILS % (AUTO) 82.7 % (42-78); TOTAL CELLS COUNTED % (AUTO) 100 %; WHITE BLOOD COUNT 15.5 10^3/uL (4.0-10.5)
[2020-09-01 21:06] LABS: ALBUMIN 3.8 g/dL (3.5-5.0); ALKALINE PHOSPHATASE 100 U/L (38-126); ANION GAP 8 (5-19); ASPARTATE AMINO TRANSFERASE 26 U/L (17-59); BILIRUBIN,DIRECT 0.3 mg/dL (0.0-0.4); BILIRUBIN,TOTAL 0.3 mg/dL (0.2-1.3); BLOOD UREA NITROGEN 9 mg/dL (7-20); CALCIUM 9.3 mg/dL (8.4-10.2); CARBON DIOXIDE 27 mmol/L (22-30); CHLORIDE 104 mmol/L (98-107); GLUCOSE 89 mg/dL (75-110); POTASSIUM 3.7 mmol/L (3.6-5.0); TOTAL PROTEIN 6.6 g/dL (6.3-8.2)
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
[2020-09-02] MEDS ORDERED: CEFAZOLIN 2 GM/D5W RTU 2 GM/50 ML RTUPB IV ONE (05:01)
[2020-09-02] MEDS ORDERED: KETOROLAC TROMETHAMINE INJ/PF 30 MG/1 ML SDV IV ONE (05:01)
--- NOTE | 2020-09-02 05:40 | RADIOLOGY REPORT (SQ) ---
EXAM DESCRIPTION: XR WRIST 3 OR MORE VIEWS COMPLETED DATE/TME: 09/02/2020 05:01 CLINICAL HISTORY: 35 years, Male, eval foreign body COMPARISON: None. NUMBER OF VIEWS: Three TECHNIQUE: Three views of the right wrist LIMITATIONS: None. FINDINGS: No acute fracture or dislocation. No radiopaque foreign body. No large soft tissue swelling. IMPRESSION: No radiopaque foreign body. copyright 2010 [employer]- All Rights Reserved
[2020-09-02 06:15] VITALS: BP 190/130
== END 2020-09-02 06:15 | disposition home or self-care (01) ==
LOC: ER 19:34
DX: L03.113 Cellulitis of right upper limb (principal); S61.511A Laceration without foreign body of right wrist, initial encounter; W45.8XXA Other foreign body or object entering through skin, initial encounter; Y93.89 Activity, other specified; Y99.0 Civilian activity done for income or pay; I10 Essential (primary) hypertension; Z79.899 Other long term (current) drug therapy; Z88.8 Allergy status to other drugs, medicaments and biological substances
CPT/HCPCS: 99284; 96375; 96365; 36415; 87040; 85025; 80053; 73110; J1885; J0690

== ENCOUNTER 2020-09-07 13:58 | Emergency (ER) | payer SELFPAY ==
[2020-09-07 14:05] VITALS: BP 160/115
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
[2020-09-07 14:54] LABS: ABSOLUTE BASOPHILS # (AUTO) 0.1 10^3/uL (0.0-0.2); ABSOLUTE EOSINOPHILS # (AUTO) 0.3 10^3/uL (0.0-0.6); ABSOLUTE LYMPHOCYTES (AUTO) 2.3 10^3/uL (0.5-4.7); ABSOLUTE MONOCYTES (AUTO) 0.9 10^3/uL (0.1-1.4); ABSOLUTE NEUT (AUTO) 7.9 10^3/uL (1.7-8.2); BASOPHILS % (AUTO) 1.2 % (0-2); EOSINOPHILS % (AUTO) 2.6 % (0-6); HEMATOCRIT 44.6 % (37.9-51.0); HEMOGLOBIN 15.1 g/dL (13.5-17.0); LYMPHOCYTES % (AUTO) 20.3 % (13-45); MEAN CORPUSCULAR HEMOGLOBIN 28.6 pg (27.0-33.4); MEAN CORPUSCULAR HGB CONC 33.8 g/dL (32.0-36.0); MEAN CORPUSCULAR VOLUME 85 fl (80-97); MONOCYTES % (AUTO) 7.4 % (3-13); PLATELET COUNT 275 10^3/uL (150-450); RED BLOOD COUNT 5.27 10^6/uL (4.35-5.55); RED CELL DISTRIBUTION WIDTH 14.2 % (11.5-14.0); SEGMENTED NEUTROPHILS % (AUTO) 68.5 % (42-78); TOTAL CELLS COUNTED % (AUTO) 100 %; WHITE BLOOD COUNT 11.5 10^3/uL (4.0-10.5)
[2020-09-07 14:59] LABS: APPEARANCE,URINE CLEAR; BILIRUBIN,URINE NEGATIVE (NEGATIVE); COLOR,URINE COLORLESS; GLUCOSE, URINE NEGATIVE (NEGATIVE); KETONES,URINE NEGATIVE (NEGATIVE); LEUKOCYTE ESTERASE,URINE NEGATIVE (NEGATIVE); NITRITE,URINE NEGATIVE (NEGATIVE); PROTEIN,URINE NEGATIVE (NEGATIVE); URINE SPECIFIC GRAVITY 1.001; UROBILINOGEN,URINE NEGATIVE mg/dL (<2.0)
[2020-09-07 15:10] LABS: ALBUMIN 4.3 g/dL (3.5-5.0); ALKALINE PHOSPHATASE 120 U/L (38-126); ANION GAP 10 (5-19); ASPARTATE AMINO TRANSFERASE 32 U/L (17-59); BILIRUBIN,DIRECT 0.3 mg/dL (0.0-0.4); BILIRUBIN,TOTAL 0.4 mg/dL (0.2-1.3); BLOOD UREA NITROGEN 10 mg/dL (7-20); CALCIUM 9.4 mg/dL (8.4-10.2); CARBON DIOXIDE 25 mmol/L (22-30); CHLORIDE 104 mmol/L (98-107); GLUCOSE 104 mg/dL (75-110); POTASSIUM 3.9 mmol/L (3.6-5.0); TOTAL PROTEIN 7.1 g/dL (6.3-8.2)
[2020-09-07] MEDS ORDERED: HYDROCODONE/ACETAMINOPHEN 5-325 MG TABLET PO ONE (18:14)
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
[2020-09-07] MEDS ORDERED: KETOROLAC TROMETHAMINE INJ/PF 30 MG/1 ML SDV IV ONE (19:48)
[2020-09-07] MEDS ORDERED: LIDOCAINE 1%/EPINEPHRINE INJ 20 ML VIAL INJ ONE (19:49)
--- NOTE | 2020-09-07 19:58 | PDOC CONSULTATION ---
Consultation Consult Date: 09/07/20 Provider Consulted: SURGICAL SURGICALIST MD Consult reason:: Current pilonidal abscess History of Present Illness Patient complains of: Pain and swelling in the pilonidal area History of Present Illness: JF LAN is a 35 year old male with a 2-year history of a pilonidal cyst. He has experienced infection of his pilonidal cyst before, requiring incision and drainage. He presents today with a 1 week history of swelling and pain beneath the scar of his previous I&D. He denies fevers or chills. He reports severe pain (10 out of 10). Nothing makes his pain better. Palpation and mo vement make it worse. He denies nausea, vomiting, fevers, chills, chest pain, shortness of breath, headache, dizziness, orthostasis. 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 Social History Smoking Status: Never Smoker Electronic Cigarette use?: No Frequency of Alcohol Use: Occasional Hx Recreational Drug Use: Yes Drugs: Marijuana Hx Prescription Drug Abuse: No Family History Family History: Reviewed & Not Pertinent Parental Family History Reviewed: Yes Children Family History Reviewed: Yes Sibling(s) Family History Reviewed.: Yes Medication/Allergy Home Medications: Amlodipine Besylate [Norvasc 10 mg Tablet] 10 mg PO DAILY 04/26/20 Losartan Potassium 100 mg PO DAILY 04/26/20 Ketorolac Tromethamine [Toradol 10 mg Tablet] 10 mg PO Q6HP PRN #30 tablet 09/02/20 Sulfamethoxazole/Trimethoprim [Bactrim Ds Tablet] 2 tab PO BID 7 Days #28 tablet 09/02/20 Allergies/Adverse Reactions: lisinopril Allergy (Verified 09/07/20 14:13) Swollen tongue tramadol Adverse Reaction (Verified 09/07/20 14:13) Review of Systems Constitutional: ABSENT: anorexia, chills, fatigue, fever(s), headache(s) Eyes: ABSENT: visual disturbances Ears: ABSENT: hearing changes Cardiovascular: ABSENT: chest pain Respiratory: ABSENT: cough Gastrointestinal: ABSENT: abdominal pain, bloating Genitourinary: ABSENT: dysuria Musculoskeletal: ABSENT: back pain Integumentary: PRESENT: erythema, lesions, other - Tender pilonidal cyst Neurological: ABSENT: confusion, convulsions, dizziness Psychiatric: PRESENT: anxiety. ABSENT: depression Endocrine: ABSENT: cold intolerance, heat intolerance Hematologic/Lymphatic: ABSENT: easy bleeding, easy bruising Physical Exam Vital Signs: Temp Pulse Resp BP Pulse Ox 98.0 F 117 H 16 160/115 H 100 09/07/20 14:04 09/07/20 14:04 09/07/20 14:04 09/07/20 14:05 09/07/20 14:04 General appearance: PRESENT: no acute distress, disheveled Head exam: PRESENT: atraumatic, normocephalic Eye exam: PRESENT: EOMI, PERRLA. ABSENT: scleral icterus Mouth exam: PRESENT: moist, neck supple Neck exam: ABSENT: meningismus, tenderness, thyromegaly, tracheal deviation Respiratory exam: PRESENT: unlabored. ABSENT: tachypnea, wheezes Cardiovascular exam: ABSENT: tachycardia GI/Abdominal exam: PRESENT: soft. ABSENT: distended, tenderness Rectal exam: PRESENT: deferred Extremities exam: ABSENT: clubbing Musculoskeletal exam: ABSENT: deformity Neurological exam: PRESENT: alert, awake, oriented to person, oriented to place, oriented to time, oriented to situation, CN II-XII grossly intact. ABSENT: motor sensory deficit Psychiatric exam: PRESENT: agitated, anxious Focused psych exam: ABSENT: delusional Skin exam: PRESENT: erythema, other - 2 Centimeter pilonidal cyst, beneath a previous scar. There is erythema and fluctuance, immediately beneath the skin. It is tender to palpation Results Laboratory Results: 09/07/20 14:30 09/07/20 14:30 09/07/20 09/07/20 09/07/20 14:30 14:30 14:30 WBC 11.5 H RBC 5.27 Hgb 15.1 Hct 44.6 MCV 85 MCH 28.6 MCHC 33.8 RDW 14.2 H Plt Count 275 Seg Neutrophils % 68.5 Sodium 139.1 Potassium 3.9 Chloride 104 Carbon Dioxide 25 Anion Gap 10 BUN 10 Creatinine 0.91 Est GFR ( Amer) > 60 Glucose 104 Calcium 9.4 Total Bilirubin 0.4 AST 32 Alkaline Phosphatase 120 Total Protein 7.1 Albumin 4.3 Urine Color COLORLESS Urine Appearance CLEAR Urine pH 7.0 Ur Specific [place] 1.001 Urine Protein NEGATIVE Urine Glucose (UA) NEGATIVE Urine Ketones NEGATIVE Urine Blood SMALL H Urine Nitrite NEGATIVE Ur Leukocyte Esterase NEGATIVE Urine WBC (Auto) 0 Assessment & Plan - Diagnosis (1) Pilonidal abscess Is this a current diagnosis for this admission?: Yes - Plan Summary Plan Summary: 35-year-old male with a 2 cm pilonidal abscess. He has had worsening symptoms at home for more than 1 week. I have offered him bedside incision and drainage in an effort to alleviate his pain. The patient has agreed to this. Risks/benefits discussed, informed consent obtained, and all questions answered.
--- NOTE | 2020-09-07 20:43 | Progress Note ---
Provider Note Provider Note: After setting up the tray for the patient's procedure, the patient decided that he does not want to have the procedure performed and is leaving the hospital AGAINST MEDICAL ADVICE. Surgery is available, if he should change his mind.
== END 2020-09-07 20:47 | disposition home or self-care (01) ==
LOC: ER 13:58
DX: L05.01 Pilonidal cyst with abscess (principal); L90.5 Scar conditions and fibrosis of skin; I10 Essential (primary) hypertension; Z79.899 Other long term (current) drug therapy; Z98.890 Other specified postprocedural states; Z88.8 Allergy status to other drugs, medicaments and biological substances; Z53.29 Procedure and treatment not carried out because of patient's decision for other reasons
CPT/HCPCS: 99284; 96374; 36415; 87086; 85025; 80053; 81001; J1885; J3490

== ENCOUNTER 2020-11-07 02:47 | Emergency (ER) | payer SELFPAY ==
[2020-11-07 06:32] VITALS: BP 168/94
== END 2020-11-07 09:04 | disposition left against medical advice (07) ==
LOC: ER 02:47
DX: Z53.21 Procedure and treatment not carried out due to patient leaving prior to being seen by health care provider (principal)